=== PATIENT | female | born 1965 | race Caucasian/White ===

== ENCOUNTER 2018-12-20 09:48 | Day surgery (SDC) | payer OTHER ==
[2018-12-19 10:53] VITALS: BMI 21.4
[~2018-12-20 09:48] MED LIST: HYDROmorphone 0.5 MG/0.5 ML SYRINGE IVP PRN; LACTATED RINGERS 1,000 ML IV ONE; LACTATED RINGERS 1,000 ML IV SCH; LIDOCAINE 1% 20 ML VIAL (10MG/ML) FOR IV START INTRADERMA PRN; LIDOCAINE VISCOUS 2% 15 ML CUP MUCOUS MEM ONE; ONDANSETRON 4 MG/2 ML VIAL IVP ONE
[2018-12-20 10:41] VITALS: TEMP 97
[2018-12-20] MEDS ORDERED: LIDOCAINE 1% INJ 10MG/ML (20 ML MDV) ONE (11:17)
[2018-12-20] MEDS ORDERED: PROPOFOL 10 MG/ML 20 ML VIAL IV ONE (11:17)
[2018-12-20] MEDS ORDERED: MIDAZOLAM 2 MG/2 ML VIAL ONE (11:17)
[2018-12-20] MEDS ORDERED: LIDOCAINE 2% INJ 20 MG/ML INTRATRACH ONE (11:35)
[2018-12-20 12:18] VITALS: BP 121/77; PULSE 82; RESP 18
--- NOTE | 2018-12-20 19:59 | P.PCN ---
Date of Procedure: 12/20/18 Preoperative Diagnosis: Right paratracheal mass Postoperative Diagnosis: Right paratracheal mass Procedure(s) Performed: Bronchoscopy, transbronchial needle aspirate of right paratracheal mass Anesthesia: MAC Surgeon: Genie Coleman Rotoformer Backtender #1: Kaley Cabrera Estimated Blood Loss (ml): 0 Pathology: other Condition: stable Disposition: same day Operative Findings: This procedure was done in the operating room. Consent was obtained before the procedure. The indications the potential complication was extended to the patient at length. A consent was signed and witnessed by the assisting nurse The patient was asked to sized by [employer]. After achieving adequate sedation, the flexible bronchoscope was inserted to the left nostril. The scope was passed down the throat end of the lungs. Examination of the nasal passages were essentially within normal. The bronchoscope was moved to the pharynx and the larynx and vocal cord structures were within normal limits with normal motility and function. A total of 2 mL of 1% lidocaine was applied to the vocal cords and following that the bronchoscope was advanced with Doppler trachea. Examination tracheal bronchial tree was done. Trachea, back and mainstem bronchi, right upper lobe bronchus, right middle lobe bronchus, right lower lobe bronchus, left upper lobe bronchus and left lower lobe bronchus and the various segments and subsegments were patent and within normal limits. At this point, using a 19-gauge cytology and 21-gauge histology, transbronchial needle aspirate of the right paratracheal lymph node was done. Several passes were taken and the adequacy of the samples were inspected by pathology the bedside. The biopsy was lesion on. No endobronchial bleeding was encountered. Bronchoscope was removed and the procedure was terminated and the patient was transferred to recovery in stable condition.
== END 2018-12-20 13:09 | disposition home or self-care (01) ==
LOC: ORWHC2ENDO 09:48
PROVIDERS: ATTEND Internal Medicine Critical Care Medicine
DX: C96.9 Malignant neoplasm of lymphoid, hematopoietic and related tissue, unspecified (principal); J44.9 Chronic obstructive pulmonary disease, unspecified; K21.0 Gastro-esophageal reflux disease with esophagitis; R10.9 Unspecified abdominal pain; G89.29 Other chronic pain; R63.4 Abnormal weight loss; Z68.21 Body mass index [BMI] 21.0-21.9, adult; F17.200 Nicotine dependence, unspecified, uncomplicated; Z79.890 Hormone replacement therapy; Z79.899 Other long term (current) drug therapy; Z88.2 Allergy status to sulfonamides
CPT/HCPCS: 88305; 88173; 88342; 88341; 31629; J2001 ×2; J2250; J2405; J2704

== ENCOUNTER 2018-12-29 11:36 | Emergency (ER) | payer OTHER ==
[2018-12-29] MEDS ORDERED: SODIUM CHLORIDE 0.9% 2,000 ML IV ONE (11:56)
--- NOTE | 2018-12-29 11:59 | ED ---
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 Patient was over seeing the oncologist today and they noted her blood pressure to be very low. Patient states over the last week she has been getting more and more lightheaded. Patient has had no syncopal episodes. Patient denies any chest pain palpitations difficulty breathing or shortness of breath. Patient does complain of anterior chest wall pain and states it's been there since September but is slowly getting worse. Patient states she has no abdominal pain but when I press her epigastric area she is tender. Patient denies any recent fever or chills. Patient denies any nausea vomiting diarrhea. Patient denies any dysuria hematuria urinary frequency. - Related Data Home Medications Medication Instructions Recorded Confirmed Levothyroxine Sodium [Synthroid] 112 mcg PO QAM 12/19/18 12/29/18 Dicyclomine [Bentyl] 20 mg PO QID 12/29/18 12/29/18 Nicotine 21Mg/24Hr Patch [Habitrol 1 patch TRANSDERM DAILY 12/29/18 12/29/18 21Mg/24Hr Patch] Omeprazole 40 mg PO DAILY 12/29/18 12/29/18 Previous Rx's Medication Instructions Recorded Nitrofurantoin Monohyd/M-Cryst 100 mg PO Q12HR #14 cap 12/29/18 [Macrobid] Allergies Allergy/AdvReac Type Severity Reaction Status Date / Time Sulfa (Sulfonamide Allergy Rash/Hives Verified 12/29/18 11:49 Antibiotics) Review of Systems ROS Statement: Those systems with pertinent positive or pertinent negative responses have been documented in the HPI. ROS Other: All systems not noted in ROS Statement are negative. Past Medical History Past Medical History: Cancer, GERD/Reflux, Thyroid Disorder Additional Past Medical History / Comment(s): enlarged lymphnode chest,having abdominal pain. Small cell. Lung CA History of Any Multi-Drug Resistant Organisms: None Reported Past Surgical History: Orthopedic Surgery Additional Past Surgical History / Comment(s): ORIF alva ankle, lt knee procedure Past Anesthesia/Blood Transfusion Reactions: No Reported Reaction Additional Past Anesthesia/Blood Transfusion Reaction / Comment(s): no hx blood transfusion Past Psychological History: No Psychological Hx Reported Smoking Status: Current every day smoker Past Alcohol Use History: None Reported Past Drug Use History: None Reported - Past Family History Mother Family Medical History: Cancer Additional Family Medical History / Comment(s): breast General Exam - General Exam Comments Initial Comments: GENERAL: Patient is well-developed and well-nourished. Patient is nontoxic and well- hydrated and is in mild distress. ENT: Neck is soft and supple. No significant lymphadenopathy is noted. Oropharynx is clear. Moist mucous membranes. Neck has full range of motion without eliciting any pain. EYES: The sclera were anicteric and conjunctiva were pink and moist. Extraocular movements were intact and pupils were equal round and reactive to light. Eyelids were unremarkable. PULMONARY: Unlabored respirations. Good breath sounds bilaterally. No audible rales rhonchi or wheezing was noted. CARDIOVASCULAR: Patient is tachycardic at about 120 beats a minute ABDOMEN: Patient has slight epigastric abdominal tenderness as well as left upper quadrant tenderness. No palpable organomegaly was noted. There is no palpable pulsatile mass. SKIN: Skin is clear with no lesions or rashes and otherwise unremarkable. NEUROLOGIC: Patient is alert and oriented x3. Cranial nerves II through XII are grossly intact. Motor and sensory are also intact. Normal speech, volume and content. Symmetrical smile. MUSCULOSKELETAL: Normal extremities with adequate strength and full range of motion. LYMPHATICS: No significant lymphadenopathy is noted PSYCHIATRIC: Normal psychiatric evaluation. Normal interpersonal interactions appears functionally intact in deals appropriately with others. No signs of depression. No signs of anxiety. Limitations: no limitations Course Vital Signs 12/29/18 12/29/18 11:39 11:56 Temperature 96.3 F L Pulse Rate 124 H 87 Respiratory 22 18 Rate Blood Pressure 79/37 124/92 O2 Sat by Pulse 99 97 Oximetry Medical Decision Making - Medical Decision Making EKG shows sinus rhythm with occasional PVC at 84 bpm AK interval is on a 62 QRS of 102 QT interval 46 QTC is 479. Patient's EKG shows no ST segment elevation or depression or T wave abnormalities are noted. Patient received Rocephin emergency department. Patient received 2 L of normal saline and her blood pressure came back up to normal. Patient was no longer lightheaded or dizzy. Patient does have an elevated lipase and she is aware of that and she will follow-up with a primary medical care doctor. - Lab Data Result diagrams: 12/29/18 12:00 12/29/18 12:00 Lab Results 12/29/18 12/29/18 12/29/18 Range/Units 12:00 12:00 12:55 WBC 10.2 (3.8-10.6) k/uL RBC 4.73 (3.80-5.40) m/uL Hgb 14.7 (11.4-16.0) gm/dL Hct 44.1 (34.0-46.0) % MCV 93.1 (80.0-100.0) fL MCH 31.1 (25.0-35.0) pg MCHC 33.5 (31.0-37.0) g/dL RDW 13.5 (11.5-15.5) % Plt Count 346 (150-450) k/uL Neutrophils % 69 % Lymphocytes % 22 % Monocytes % 6 % Eosinophils % 1 % Basophils % 0 % Neutrophils # 7.0 (1.3-7.7) k/uL Lymphocytes # 2.2 (1.0-4.8) k/uL Monocytes # 0.6 (0-1.0) k/uL Eosinophils # 0.1 (0-0.7) k/uL Basophils # 0.0 (0-0.2) k/uL Sodium 133 L (137-145) mmol/L Potassium 4.1 (3.5-5.1) mmol/L Chloride 98 (98-107) mmol/L Carbon Dioxide 23 (22-30) mmol/L Anion Gap 12 mmol/L BUN 12 (7-17) mg/dL Creatinine 0.78 (0.52-1.04) mg/dL Est GFR (CKD-EPI)AfAm >90 (>60 ml/min/1.73 sqM) Est GFR (CKD-EPI)NonAf 86 (>60 ml/min/1.73 sqM) Glucose 114 H (74-99) mg/dL Calcium 9.6 (8.4-10.2) mg/dL Magnesium 2.1 (1.6-2.3) mg/dL Total Bilirubin 0.6 (0.2-1.3) mg/dL AST 18 (14-36) U/L ALT 51 (9-52) U/L Alkaline Phosphatase 51 (38-126) U/L Total Protein 6.8 (6.3-8.2) g/dL Albumin 3.8 (3.5-5.0) g/dL Amylase 88 (30-110) U/L Lipase 488 H (23-300) U/L Urine Color Light Yellow Urine Appearance Clear (Clear) Urine pH 6.0 (5.0-8.0) Ur Specific [place] 1.004 (1.001-1.035) Urine Protein Negative (Negative) Urine Glucose (UA) Negative (Negative) Urine Ketones Negative (Negative) Urine Blood Negative (Negative) Urine Nitrite Positive H (Negative) Urine Bilirubin Negative (Negative) Urine Urobilinogen <2.0 (<2.0) mg/dL Ur Leukocyte Esterase Moderate H (Negative) Urine WBC 16 H (0-5) /hpf Ur Squamous Epith Cells 4 (0-4) /hpf Urine Bacteria Occasional H (None) /hpf Disposition Clinical Impression: Dehydration, Urinary tract infection, Hypotension, Elevated lipase Disposition: HOME SELF-CARE Condition: Good Instructions (If sedation given, give patient instructions): Urinary Tract Infection in Women (ED) Prescriptions: Nitrofurantoin Monohyd/M-Cryst [Macrobid] 100 mg PO Q12HR #14 cap Is patient prescribed a controlled substance at d/c from ED?: No Referrals: Selvin Jaeger MD [Primary Care Provider] - 1-2 days Time of Disposition: 13:40
[2018-12-29 12:25] LABS: Basophils % (A) 0 %; Eosinophils # (A) 0.1 k/uL (0-0.7); Eosinophils % (A) 1 %; HCT 44.1 % (34.0-46.0); HGB 14.7 gm/dL (11.4-16.0); Lymphocytes # (A) 2.2 k/uL (1.0-4.8); Lymphocytes % (A) 22 %; MCH 31.1 pg (25.0-35.0); MCHC 33.5 g/dL (31.0-37.0); MCV 93.1 fL (80.0-100.0); Mean Platelet Volume 6.5; Monocytes # (A) 0.6 k/uL (0-1.0); Monocytes % (A) 6 %; Neutrophils % (A) 69 %; Platelet Count 346 k/uL (150-450); RBC 4.73 m/uL (3.80-5.40); RDW 13.5 % (11.5-15.5); WBC 10.2 k/uL (3.8-10.6)
[2018-12-29 12:28] LABS: ALT 51 U/L (9-52); AST 18 U/L (14-36); Albumin 3.8 g/dL (3.5-5.0); Alkaline Phosphatase 51 U/L (38-126); Amylase 88 U/L (30-110); Anion Gap 12 mmol/L; Blood Urea Nitrogen 12 mg/dL (7-17); Calcium 9.6 mg/dL (8.4-10.2); Carbon Dioxide 23 mmol/L (22-30); Chloride 98 mmol/L (98-107); Glucose 114 mg/dL (74-99); Lipase 488 U/L (23-300); Magnesium 2.1 mg/dL (1.6-2.3); Potassium 4.1 mmol/L (3.5-5.1); Sodium 133 mmol/L (137-145); Total Bilirubin 0.6 mg/dL (0.2-1.3); Total Protein 6.8 g/dL (6.3-8.2)
[2018-12-29 13:32] LABS: Appearance,Urine Clear (Clear); Bacteria,Urine Occasional /hpf; Bilirubin,Urine Negative (Negative); Blood,Urine Negative (Negative); Color,Urine Light Yellow; Glucose,Urine (UA) Negative (Negative); Ketones,Urine Negative (Negative); Leukocyte Esterase,Urine Moderate (Negative); Nitrite,Urine Positive (Negative); Protein,Urine Negative (Negative); Specific Gravity,Urine 1.004 (1.001-1.035); Squamous Epithelial Cell,Urine 4 /hpf (0-4); Urobilinogen,Urine <2.0 mg/dL (<2.0); WBC,Urine 16 /hpf (0-5)
[2018-12-29 13:52] VITALS: BP 103/59; PULSE 86; RESP 16; TEMP 98.6
[2018-12-29] MEDS ORDERED: cefTRIAXone 1,000 MG VIAL (IM USE) IM ONE (14:00)
== END 2018-12-29 14:06 | disposition home or self-care (01) ==
LOC: EC 11:36
DX: E86.0 Dehydration (principal); N39.0 Urinary tract infection, site not specified; I95.9 Hypotension, unspecified; R74.8 Abnormal levels of other serum enzymes; I49.3 Ventricular premature depolarization; K21.9 Gastro-esophageal reflux disease without esophagitis; E07.9 Disorder of thyroid, unspecified; F17.200 Nicotine dependence, unspecified, uncomplicated; Z79.890 Hormone replacement therapy; Z79.899 Other long term (current) drug therapy; Z88.2 Allergy status to sulfonamides; Z85.118 Personal history of other malignant neoplasm of bronchus and lung
CPT/HCPCS: 36415; 93005; 80053; 82150; 83690; 83735; 85025; 81001; 87086; 87077; 87186; 99284; 96360; 96372; J0696

== ENCOUNTER → 2018-12-29 | Outpatient (CLI) | payer OTHER ==
--- NOTE | 2018-12-29 15:04 | MR ---
EXAMINATION TYPE: MR brain wo/w con DATE OF EXAM: 12/29/2018 COMPARISON: No comparisons available at this location. HISTORY: Lung cancer, headaches CONTRAST: Performed utilizing 6 mL intravenous Gadavist gadolinium contrast. TECHNIQUE: Multiplanar, multiecho imaging on a 3.0 Cherie magnet is performed through the brain. Stud y is performed within 24 hours of arrival to the hospital. The craniovertebral junction is normal. The pituitary is normal. Diffusion-weighted imaging is performed. No abnormal hyperintensity is present to suggest an acute i ntracranial infarct or acute ischemic change. There are scattered deep white matter changes present bilaterally. Findings are nonspecific but could be related to microvascular ischemic change. No corresponding diffusion weighted image hyperintensit y is evident. No abnormal enhancement is evident. Metastatic lesions are less likely within the diffe rential. No abnormal enhancement is evident within the brain. Calvarium appears intact. Ventricles and sulci are slightly prominent for the patient age. Mucosal thickenings within the sphenoid and ethmoid air cells. Mastoid air cells are clear. Maxillary sinuses appear clear. IMPRESSIONS: 1. 1. No suspicious changes to suggest metastatic disease. 2. There are multiple bilateral hyperintensities in the subcortical and deep white matter. The findin gs are nonspecific but could be related to microvascular ischemic change. Lack of enhancement and no significant edema and negative diffusion suggested metastatic lesions to be less likely. Vasculitis a nd Lyme disease could be considered.
== END ==
LOC: RADMRIMAIN 14:13
PROVIDERS: ATTEND Internal Medicine Hematology & Oncology
DX: R90.89 Other abnormal findings on diagnostic imaging of central nervous system (principal); C34.90 Malignant neoplasm of unspecified part of unspecified bronchus or lung
CPT/HCPCS: 70553; A9585

== ENCOUNTER → 2018-12-30 | Outpatient (CLI) | payer OTHER ==
--- NOTE | 2019-01-01 15:28 | PE ---
EXAMINATION TYPE: PET CT fusion skull to thigh DATE OF EXAM: 12/30/2018 COMPARISON: None Prior PET/CT: None HISTORY: Lung cancer right lung TECHNIQUE: Following the intravenous administration of 12.6-7 mCi of F-18 FDG, whole body images are performed from the skull base to the midthigh. Images are reviewed on the computer in the coronal, axial, and sagittal planes. Reconstructed rotating images are created on independent workstation and reviewed on the computer. A localization and attenuation correction CT is performed in conjunction with the PET scan. DLP: 179.36 mGycm SCAN: Initial Blood glucose: 98 mg/dL Average Mediastinum SUV: 1.65 Average Liver SUV: 1.89 FINDINGS: NECK: No abnormal uptake THORAX: There is marked increased radiotracer accumulation within the right paratracheal mass. This h as an SUV value of 6.1 compatible with neoplasm. There is marked increased uptake within the right hilar lymph node. This has an SUV value 5.45, gregg tible with neoplasm. Additional abnormal mediastinal uptake is not identified. No suspicious uptake is identified within t he lung ivy. ABDOMEN: No abnormal uptake. There is normal radiotracer through the bilateral kidneys and excretory system. PELVIS: No abnormal uptake OSSEOUS STRUCTURES: No abnormal uptake LOCALIZATION CT: Ascending thoracic aorta at the level the main pulmonary artery is 3.3 cm patent lis n pulmonary artery the bifurcation is 2.1 cm. Some coronary artery calcifications present. COMPARISON: Subsequent CTA for pulmonary embolism was obtained 01/01/2019. Mediastinal and hilar hector s correspond to the abnormalities on the PET/CT. IMPRESSION: 1. Mediastinal mass compatible with neoplasm. Primary and metastatic disease could be considered. 2. Abnormal uptake within the right hilar lymph node compatible with neoplastic disease.
== END ==
LOC: RADPETMAIN 12:12
PROVIDERS: ATTEND Internal Medicine
DX: J98.59 Other diseases of mediastinum, not elsewhere classified (principal); R93.89 Abnormal findings on diagnostic imaging of other specified body structures; R91.1 Solitary pulmonary nodule
CPT/HCPCS: 78815; A9552

== ENCOUNTER 2019-01-01 11:37 | Emergency (ER) | payer OTHER ==
[2019-01-01] MEDS ORDERED: SODIUM CHLORIDE 0.9% 1,000 ML IV ONE (12:09)
--- NOTE | 2019-01-01 12:13 | ED ---
General Adult HPI - General Chief complaint: Abdominal Pain Stated complaint: LOW BP,Ca PATIENT Time Seen by Provider: 01/01/19 11:50 Source: patient, RN notes reviewed Mode of arrival: wheelchair Limitations: no limitations - History of Present Illness Initial comments: This is a 53-year-old female presents emergency department with past medical history of recently diagnosed small cell lung cancer. Patient presents to the emergency department complaining of feeling lightheaded since last evening and she went to her physician's office today and they noted that her blood pressure was low. Patient states the same thing happened Tuesday and she was seen in the emergency department that time was hydrated with some normal saline and blood pressure came back nicely and she was sent home and felt fine since Tuesday night. Patient denies any pain patient denies headache patient denies numbness weakness. Patient denies near syncopal episode. Patient denies any chest pain palpitations difficulty breathing shortness of breath. Patient states she has some at the gastric and left upper quadrant abdominal pain which is been ongoing for quite a while but no one seems to be able to figure out what his uvula she has had CAT scans in the past. Patient denies any vomiting or diarrhea. Patient denies any recent fever chills or cough. Patient denies any swelling to her legs. - Related Data Home Medications Medication Instructions Recorded Confirmed Levothyroxine Sodium [Synthroid] 112 mcg PO QAM 12/19/18 01/01/19 Dicyclomine [Bentyl] 20 mg PO QID 12/29/18 01/01/19 Omeprazole 40 mg PO DAILY 12/29/18 01/01/19 HYDROcodone/APAP 5-325MG [[place] 1 tab PO QID 01/01/19 01/01/19 5-325] Allergies Allergy/AdvReac Type Severity Reaction Status Date / Time Sulfa (Sulfonamide Allergy Rash/Hives Verified 01/01/19 12:20 Antibiotics) Review of Systems ROS Statement: Those systems with pertinent positive or pertinent negative responses have been documented in the HPI. ROS Other: All systems not noted in ROS Statement are negative. Past Medical History Past Medical History: Cancer, GERD/Reflux, Thyroid Disorder Additional Past Medical History / Comment(s): enlarged lymphnode chest,having abdominal pain. Small cell. Lung CA History of Any Multi-Drug Resistant Organisms: None Reported Past Surgical History: Orthopedic Surgery Additional Past Surgical History / Comment(s): ORIF alva ankle, lt knee procedure Past Anesthesia/Blood Transfusion Reactions: No Reported Reaction Additional Past Anesthesia/Blood Transfusion Reaction / Comment(s): no hx blood transfusion Past Psychological History: No Psychological Hx Reported Smoking Status: Current every day smoker Past Alcohol Use History: None Reported Past Drug Use History: None Reported - Past Family History Mother Family Medical History: Cancer Additional Family Medical History / Comment(s): breast General Exam - General Exam Comments Initial Comments: GENERAL: Patient is well-developed and well-nourished. Patient is nontoxic and well- hydrated and is in no acute distress. ENT: Neck is soft and supple. No significant lymphadenopathy is noted. Oropharynx is clear. Moist mucous membranes. Neck has full range of motion without eliciting any pain. EYES: The sclera were anicteric and conjunctiva were pink and moist. Extraocular movements were intact and pupils were equal round and reactive to light. Eyelids were unremarkable. PULMONARY: Unlabored respirations. Good breath sounds bilaterally. No audible rales rhonchi or wheezing was noted. CARDIOVASCULAR: There is a regular rate and rhythm without any murmurs gallops or rubs. ABDOMEN: Soft and nontender with normal bowel sounds. No palpable organomegaly was noted. There is no palpable pulsatile mass. SKIN: Skin is clear with no lesions or rashes and otherwise unremarkable. NEUROLOGIC: Patient is alert and oriented x3. Cranial nerves II through XII are grossly intact. Motor and sensory are also intact. Normal speech, volume and content. Symmetrical smile. MUSCULOSKELETAL: Normal extremities with adequate strength and full range of motion. No lower extremity swelling or edema. No calf tenderness. LYMPHATICS: No significant lymphadenopathy is noted PSYCHIATRIC: Normal psychiatric evaluation. Limitations: no limitations Course Vital Signs 01/01/19 01/01/19 01/01/19 11:48 12:10 12:58 Temperature 97.7 F Pulse Rate 85 92 91 Respiratory 18 18 18 Rate Blood Pressure 82/55 86/67 130/90 O2 Sat by Pulse 99 99 Oximetry 01/01/19 01/01/19 14:24 15:39 Temperature Pulse Rate 90 85 Respiratory 18 18 Rate Blood Pressure 129/84 124/81 O2 Sat by Pulse 97 98 Oximetry Medical Decision Making - Medical Decision Making EKG shows a junctional rhythm at 96 bpm QRS is 100 QT interval 36 QTC is 487. This is different than the previous EKG on Tuesday which showed a sinus rhythm. The parents computed tomography scan of the chest showed no pulmonary embolism. It did show a mediastinal mass which was already identified previously I spoke with Dr. Bridgett Urias agreed the patient could go home. I went back into reevaluate the patient patient's monitor showed a normal sinus rhythm at this time. - Lab Data Result diagrams: 01/01/19 12:03 01/01/19 12:03 Lab Results 01/01/19 01/01/19 01/01/19 Range/Units 12: 12: 12: WBC 8.4 (3.8-10.6) k/uL RBC 4.38 (3.80-5.40) m/uL Hgb 14.1 (11.4-16.0) gm/dL Hct 41.4 (34.0-46.0) % MCV 94.5 (80.0-100.0) fL MCH 32.1 (25.0-35.0) pg MCHC 34.0 (31.0-37.0) g/dL RDW 13.6 (11.5-15.5) % Plt Count 317 (150-450) k/uL Neutrophils % 77 % Lymphocytes % 15 % Monocytes % 6 % Eosinophils % 2 % Basophils % 0 % Neutrophils # 6.4 (1.3-7.7) k/uL Lymphocytes # 1.2 (1.0-4.8) k/uL Monocytes # 0.5 (0-1.0) k/uL Eosinophils # 0.1 (0-0.7) k/uL Basophils # 0.0 (0-0.2) k/uL D-Dimer 2.00 H (<0.60) mg/L FEU Sodium 132 L (137-145) mmol/L Potassium 3.6 (3.5-5.1) mmol/L Chloride 97 L (98-107) mmol/L Carbon Dioxide 25 (22-30) mmol/L Anion Gap 10 mmol/L BUN 9 (7-17) mg/dL Creatinine 0.58 (0.52-1.04) mg/dL Est GFR (CKD-EPI)AfAm >90 (>60 ml/min/1.73 sqM) Est GFR (CKD-EPI)NonAf >90 (>60 ml/min/1.73 sqM) Glucose 157 H (74-99) mg/dL Calcium 9.5 (8.4-10.2) mg/dL Total Bilirubin 0.5 (0.2-1.3) mg/dL AST 14 (14-36) U/L ALT 38 (9-52) U/L Alkaline Phosphatase 50 (38-126) U/L Total Creatine Kinase (30-135) U/L CK-MB (CK-2) (0.0-2.4) ng/mL CK-MB (CK-2) Rel Index Troponin I (0.000-0.034) ng/mL Total Protein 6.6 (6.3-8.2) g/dL Albumin 3.7 (3.5-5.0) g/dL Amylase 71 (30-110) U/L Lipase 347 H (23-300) U/L Urine Color Urine Appearance (Clear) Urine pH (5.0-8.0) Ur Specific [place] (1.001-1.035) Urine Protein (Negative) Urine Glucose (UA) (Negative) Urine Ketones (Negative) Urine Blood (Negative) Urine Nitrite (Negative) Urine Bilirubin (Negative) Urine Urobilinogen (<2.0) mg/dL Ur Leukocyte Esterase (Negative) 01/01/19 01/01/19 Range/Units 12:03 13:15 WBC (3.8-10.6) k/uL RBC (3.80-5.40) m/uL Hgb (11.4-16.0) gm/dL Hct (34.0-46.0) % MCV (80.0-100.0) fL MCH (25.0-35.0) pg MCHC (31.0-37.0) g/dL RDW (11.5-15.5) % Plt Count (150-450) k/uL Neutrophils % % Lymphocytes % % Monocytes % % Eosinophils % % Basophils % % Neutrophils # (1.3-7.7) k/uL Lymphocytes # (1.0-4.8) k/uL Monocytes # (0-1.0) k/uL Eosinophils # (0-0.7) k/uL Basophils # (0-0.2) k/uL D-Dimer (<0.60) mg/L FEU Sodium (137-145) mmol/L Potassium (3.5-5.1) mmol/L Chloride (98-107) mmol/L Carbon Dioxide (22-30) mmol/L Anion Gap mmol/L BUN (7-17) mg/dL Creatinine (0.52-1.04) mg/dL Est GFR (CKD-EPI)AfAm (>60 ml/min/1.73 sqM) Est GFR (CKD-EPI)NonAf (>60 ml/min/1.73 sqM) Glucose (74-99) mg/dL Calcium (8.4-10.2) mg/dL Total Bilirubin (0.2-1.3) mg/dL AST (14-36) U/L ALT (9-52) U/L Alkaline Phosphatase (38-126) U/L Total Creatine Kinase 22 L (30-135) U/L CK-MB (CK-2) <0.2 (0.0-2.4) ng/mL CK-MB (CK-2) Rel Index Troponin I <0.012 (0.000-0.034) ng/mL Total Protein (6.3-8.2) g/dL Albumin (3.5-5.0) g/dL Amylase (30-110) U/L Lipase (23-300) U/L Urine Color Light Yellow Urine Appearance Clear (Clear) Urine pH 6.5 (5.0-8.0) Ur Specific [place] 1.000 L (1.001-1.035) Urine Protein Negative (Negative) Urine Glucose (UA) Negative (Negative) Urine Ketones Negative (Negative) Urine Blood Negative (Negative) Urine Nitrite Negative (Negative) Urine Bilirubin Negative (Negative) Urine Urobilinogen <2.0 (<2.0) mg/dL Ur Leukocyte Esterase Negative (Negative) Disposition Clinical Impression: Lightheaded, History of lung cancer, Hypotension Disposition: HOME SELF-CARE Condition: Good Instructions (If sedation given, give patient instructions): Hypotension (ED) Is patient prescribed a controlled substance at d/c from ED?: No Referrals: Selvin Jaeger MD [Primary Care Provider] - 1-2 days Pop Fortune MD [STAFF PHYSICIAN] - 1-2 days Time of Disposition: 16:25
[2019-01-01 12:22] LABS: Basophils % (A) 0 %; Eosinophils # (A) 0.1 k/uL (0-0.7); Eosinophils % (A) 2 %; HCT 41.4 % (34.0-46.0); HGB 14.1 gm/dL (11.4-16.0); Lymphocytes # (A) 1.2 k/uL (1.0-4.8); Lymphocytes % (A) 15 %; MCH 32.1 pg (25.0-35.0); MCV 94.5 fL (80.0-100.0); Mean Platelet Volume 6.2; Monocytes # (A) 0.5 k/uL (0-1.0); Monocytes % (A) 6 %; Neutrophils # (A) 6.4 k/uL (1.3-7.7); Neutrophils % (A) 77 %; Platelet Count 317 k/uL (150-450); RBC 4.38 m/uL (3.80-5.40); RDW 13.6 % (11.5-15.5); WBC 8.4 k/uL (3.8-10.6)
--- NOTE | 2019-01-01 12:29 | XR ---
EXAMINATION TYPE: XR KUB DATE OF EXAM: 01/01/2019 CLINICAL DATA: 53-year-old female with abdominal pain, PH[facility] COMPARISON: PET CT 12/30/2018 FINDINGS: Lung bases are clear. No evidence for free intraperitoneal air. There are scattered small air-fluid levels demonstrated. No dilated bowel loops. No significant stool burden. Mottled stool in the rectum. No suspicious calcifications identified. IMPRESSION: 1. Scattered small air-fluid levels could represent ileus or enteritis. 2.No evidence of bowel obstruction or free intraperitoneal air.
[2019-01-01 12:31] LABS: ALT 38 U/L (9-52); Albumin 3.7 g/dL (3.5-5.0); Alkaline Phosphatase 50 U/L (38-126); Amylase 71 U/L (30-110); Anion Gap 10 mmol/L; Blood Urea Nitrogen 9 mg/dL (7-17); Carbon Dioxide 25 mmol/L (22-30); Chloride 97 mmol/L (98-107); Glucose 157 mg/dL (74-99); Lipase 347 U/L (23-300); Potassium 3.6 mmol/L (3.5-5.1); Sodium 132 mmol/L (137-145); Total Protein 6.6 g/dL (6.3-8.2)
[2019-01-01 12:32] LABS: AST 14 U/L (14-36); Calcium 9.5 mg/dL (8.4-10.2); Total Bilirubin 0.5 mg/dL (0.2-1.3)
[2019-01-01 12:42] LABS: Creatine Kinase 22 U/L (30-135)
[2019-01-01 12:56] LABS: Creatine Kinase MB <0.2 ng/mL (0.0-2.4); Troponin I <0.012 ng/mL (0.000-0.034)
[2019-01-01 13:39] LABS: Appearance,Urine Clear (Clear); Bilirubin,Urine Negative (Negative); Blood,Urine Negative (Negative); Color,Urine Light Yellow; Glucose,Urine (UA) Negative (Negative); Ketones,Urine Negative (Negative); Leukocyte Esterase,Urine Negative (Negative); Nitrite,Urine Negative (Negative); PH, Urine 6.5 (5.0-8.0); Protein,Urine Negative (Negative); Urobilinogen,Urine <2.0 mg/dL (<2.0)
--- NOTE | 2019-01-01 15:14 | CT ---
CT CHEST FOR PULMONARY EMBOLISM. EXAMINATION TYPE: CT chest angio for PE DATE OF EXAM: 01/01/2019 INDICATION: Lower Chest pain with shortness of breath. History of lung cancer CT DLP: 212.8 mGycm, Automated exposure control for dose reduction was used. CONTRAST: Patient injected with 100 mL of Isovue 370. COMPARISON: PET CT 12/30/2018 TECHNIQUE: CT of the chest is performed on a spiral scan at 2 mm thick sections. Study is performed with intravenous contrast timed for evaluation for pulmonary embolism. This will limit additional po rtions of the evaluation. 3-D MIP images reconstructed by the technologist are reviewed on the compu ter in the coronal and sagittal planes. FINDINGS: No persistent filling defects are evident to suggest an acute pulmonary embolism. There is an enlarged right hilar lymph node measuring 1.5 cm. There is a very large lymph node or mas s in the pretracheal space measuring 2.1 x 3.0 x 4.6 cm The ascending aorta diameter at the level of the main pulmonary artery is 3.0 cm. The main pulmonary artery diameter at the bifurcation is 2.2 c m. Emphysematous changes are present. No suspicious infiltrates are evident. Limited CT section through the upper abdomen are unremarkable. IMPRESSIONS: 1. No acute embolism. 2. Mediastinal mass could be a very large lymph node or underlying mediastinal mass. Primary or metas tatic lung cancer within the differential. Findings correspond to the PET/CT of 12/30/2018.
[2019-01-01 16:47] VITALS: BP 119/91; PULSE 76; RESP 16; TEMP 98.7
== END 2019-01-01 17:25 | disposition home or self-care (01) ==
LOC: EC 11:37
DX: I95.9 Hypotension, unspecified (principal); R10.12 Left upper quadrant pain; K21.9 Gastro-esophageal reflux disease without esophagitis; E07.9 Disorder of thyroid, unspecified; F17.200 Nicotine dependence, unspecified, uncomplicated; Z85.118 Personal history of other malignant neoplasm of bronchus and lung; Z79.890 Hormone replacement therapy; Z79.891 Long term (current) use of opiate analgesic; Z79.899 Other long term (current) drug therapy; Z88.2 Allergy status to sulfonamides
CPT/HCPCS: 99285; 96360; 36415; 93005; 85379; 80053; 82150; 82550; 82553; 83690; 84484; 85025; 81003; 74018; 71275; Q9967

== ENCOUNTER → 2019-01-04 | Outpatient (CLI) | payer OTHER ==
--- NOTE | 2019-01-05 13:49 | ECHOF ---
Referral Reason:I95.9 Hypotensive, C34.91 lung ca MEASUREMENTS -------- HEIGHT: 170.2 cm WEIGHT: 60.3 kg BP: RVIDd: 2.0 cm (< 3.3) IVSd: 1.1 cm (0.6 - 1.1) LVIDd: 5.6 cm (3.9 - 5.3) LVPWd: 1.3 cm (0.6 - 1.1) IVSs: 1.6 cm LVIDs: 4.0 cm LVPWs: 1.6 cm LA Diam: 3.4 cm (2.7 - 3.8) Ao Diam: 3.3 cm (2.0 - 3.7) AV Cusp: 1.8 cm (1.5 - 2.6) LA Diam: 3.7 cm (2.7 - 3.8) MV EXCURSION: 25.380 mm (> 18.000) MV EF SLOPE: 110 mm/s (70 - 150) EPSS: 1.2 cm MV E Hebert: 0.37 m/s MV DecT: 323 ms MV A Hebert: 0.80 m/s MV E/A Ratio: 0.47 RAP: 5.00 mmHg RVSP: 28.25 mmHg FINDINGS -------- Resting bradycardia (HR<60bpm). This was a technically good study. Overall left ventricular systolic function is mildly impaired with, an EF between 45 - 50 %. The right ventricle is normal in size. The left atrial size is normal. The aortic valve is trileaflet, and appears structurally normal. No aortic stenosis or regurgitation. The mitral valve leaflets are mildly thickened. Mild mitral annular calcification present. Modera te mitral regurgitation is present. Mild tricuspid regurgitation present. There is no evidence of pulmonary hypertension. The right v entricular systolic pressure, as measured by Doppler, is 28.25mmHg. There is no pulmonic regurgitation present. The aortic root size is normal. There is no pericardial effusion. CONCLUSIONS -------- 1. Overall left ventricular systolic function is mildly impaired with, an EF between 45 - 50 %. 2. The right ventricle is normal in size. 3. The left atrial size is normal. 4. The aortic valve is trileaflet, and appears structurally normal. No aortic stenosis or regurgitati on. 5. The mitral valve leaflets are mildly thickened. 6. Mild mitral annular calcification present. 7. Moderate mitral regurgitation is present. 8. Mild tricuspid regurgitation present. 9. There is no evidence of pulmonary hypertension. 10. The right ventricular systolic pressure, as measured by Doppler, is 28.25mmHg. 11. There is no pulmonic regurgitation present. 12. The aortic root size is normal. 13. There is no pericardial effusion. [employer] II ASSEMBLER: Chante Agee RDCS
== END | disposition home or self-care (01) ==
LOC: RADECHMAIN 12:28
PROVIDERS: ATTEND Internal Medicine Hematology & Oncology
DX: I08.1 Rheumatic disorders of both mitral and tricuspid valves (principal); C34.91 Malignant neoplasm of unspecified part of right bronchus or lung; I95.9 Hypotension, unspecified
CPT/HCPCS: 93306

== ENCOUNTER 2019-01-12 07:58 | Inpatient (IN) | payer OTHER ==
[2019-01-12] MEDS ORDERED: SODIUM CHLORIDE 0.9% 1,000 ML IV STA ×2 (08:04→09:29)
--- NOTE | 2019-01-12 08:32 | ED ---
General Adult HPI - General Chief complaint: Weakness Stated complaint: weak Time Seen by Provider: 01/12/19 08:04 Source: patient, family, RN notes reviewed Limitations: no limitations - History of Present Illness Initial comments: Patient is a pleasant 53-year-old female presenting to the emergency Department with generalized weakness. Symptoms have progressed over several weeks, especially the past couple of days. Patient has had decreased appetite for several months and has lost 40 pounds over the past 4 months. Patient was just diagnosed with small cell lung cancer approximately 2 weeks ago. Patient has seen Dr. Fortune and plans are underway for treatment at this time. Patient is not currently under any treatment. Patient just had her port placed. Patient complains of feeling lightheaded and generally weak. No recent area of weakness. No speech problem is. Family states patient has-been confused at times and is having difficulty understanding what they're saying. Patient also needs assistance at times with walking. - Related Data Home Medications Medication Instructions Recorded Confirmed Levothyroxine Sodium [Synthroid] 112 mcg PO DAILY 12/19/18 01/12/19 Omeprazole 40 mg PO DAILY 12/29/18 01/12/19 HYDROcodone/APAP 5-325MG [[place] 1 tab PO QID PRN 01/01/19 01/12/19 5-325] Lactose-Reduced Food [Ensure Plus] 1 can PO TID 01/12/19 01/12/19 Ondansetron [Zofran] 4 mg PO Q8HR PRN 01/12/19 01/12/19 Allergies Allergy/AdvReac Type Severity Reaction Status Date / Time Sulfa (Sulfonamide Allergy Rash/Hives Verified 01/12/19 09:23 Antibiotics) latex AdvReac Unknown Verified 01/12/19 09:23 Review of Systems ROS Statement: Those systems with pertinent positive or pertinent negative responses have been documented in the HPI. ROS Other: All systems not noted in ROS Statement are negative. Constitutional: Denies: fever Eyes: Denies: eye pain ENT: Denies: ear pain Respiratory: Denies: cough Cardiovascular: Denies: chest pain Endocrine: Denies: fatigue Gastrointestinal: Denies: abdominal pain Genitourinary: Denies: dysuria Musculoskeletal: Denies: back pain Skin: Denies: rash Neurological: Reports: weakness, confusion Past Medical History Past Medical History: Cancer, GERD/Reflux, Thyroid Disorder Additional Past Medical History / Comment(s): enlarged lymphnode chest,having abdominal pain. Small cell. Lung CA History of Any Multi-Drug Resistant Organisms: None Reported Past Surgical History: Orthopedic Surgery Additional Past Surgical History / Comment(s): ORIF alva ankle, lt knee procedure Past Anesthesia/Blood Transfusion Reactions: No Reported Reaction Additional Past Anesthesia/Blood Transfusion Reaction / Comment(s): no hx blood transfusion Past Psychological History: No Psychological Hx Reported Smoking Status: Current every day smoker Past Alcohol Use History: None Reported Past Drug Use History: None Reported - Past Family History Mother Family Medical History: Cancer Additional Family Medical History / Comment(s): breast General Exam Limitations: no limitations General appearance: alert, in no apparent distress Head exam: Present: atraumatic Eye exam: Present: other (Pale conjunctiva) ENT exam: Present: normal oropharynx Neck exam: Present: normal inspection Respiratory exam: Present: normal lung sounds bilaterally Cardiovascular Exam: Present: tachycardia GI/Abdominal exam: Present: soft. Absent: tenderness Extremities exam: Present: normal inspection. Absent: pedal edema, calf tenderness Neurological exam: Present: alert, oriented X3, CN II-XII intact, other ( Patient does have difficulty following commands once or twice and needs to be reminded.). Absent: motor sensory deficit Psychiatric exam: Present: normal affect, normal mood Skin exam: Present: normal color Course Vital Signs 01/12/19 01/12/19 01/12/19 07:59 08:30 09:30 Temperature 97.6 F Pulse Rate 107 H 97 92 Respiratory 22 18 18 Rate Blood Pressure 86/62 91/69 117/79 O2 Sat by Pulse 98 95 99 Oximetry 01/12/19 01/12/19 10:00 10:30 Temperature Pulse Rate 98 82 Respiratory 20 20 Rate Blood Pressure 126/95 106/68 O2 Sat by Pulse 98 100 Oximetry EKG Findings - EKG Comments: EKG Findings:: Sinus rhythm at 77 with received. SD 180. QRS 102. QT 458. QTC 518. Normal axis. Normal QRS. No acute ST change. Medical Decision Making - Medical Decision Making Patient reevaluated and resting comfortably in bed. Patient and family updated on results and plan. Dr. Cisneros has been paged for admission for Dr. Jaeger - Lab Data Result diagrams: 01/12/19 08:48 01/12/19 08:48 Lab Results 01/12/19 01/12/19 01/12/19 Range/Units 08:48 08:48 08:48 WBC 11.7 H (3.8-10.6) k/uL RBC 4.58 (3.80-5.40) m/uL Hgb 14.5 (11.4-16.0) gm/dL Hct 41.7 (34.0-46.0) % MCV 91.0 (80.0-100.0) fL MCH 31.7 (25.0-35.0) pg MCHC 34.8 (31.0-37.0) g/dL RDW 13.7 (11.5-15.5) % Plt Count 346 (150-450) k/uL Neutrophils % 81 % Lymphocytes % 11 % Monocytes % 7 % Eosinophils % 1 % Basophils % 0 % Neutrophils # 9.5 H (1.3-7.7) k/uL Lymphocytes # 1.3 (1.0-4.8) k/uL Monocytes # 0.8 (0-1.0) k/uL Eosinophils # 0.1 (0-0.7) k/uL Basophils # 0.0 (0-0.2) k/uL PT 10.4 (9.0-12.0) sec INR 1.0 (<1.2) APTT 24.9 (22.0-30.0) sec Sodium 115 L* (137-145) mmol/L Potassium 3.3 L (3.5-5.1) mmol/L Chloride 78 L (98-107) mmol/L Carbon Dioxide 25 (22-30) mmol/L Anion Gap 12 mmol/L BUN 9 (7-17) mg/dL Creatinine 0.58 (0.52-1.04) mg/dL Est GFR (CKD-EPI)AfAm >90 (>60 ml/min/1.73 sqM) Est GFR (CKD-EPI)NonAf >90 (>60 ml/min/1.73 sqM) Glucose 93 (74-99) mg/dL Calcium 8.7 (8.4-10.2) mg/dL Total Bilirubin 1.4 H (0.2-1.3) mg/dL AST 14 (14-36) U/L ALT 28 (9-52) U/L Alkaline Phosphatase 39 (38-126) U/L Total Protein 6.0 L (6.3-8.2) g/dL Albumin 3.3 L (3.5-5.0) g/dL Urine Color Urine Appearance (Clear) Urine pH (5.0-8.0) Ur Specific [place] (1.001-1.035) Urine Protein (Negative) Urine Glucose (UA) (Negative) Urine Ketones (Negative) Urine Blood (Negative) Urine Nitrite (Negative) Urine Bilirubin (Negative) Urine Urobilinogen (<2.0) mg/dL Ur Leukocyte Esterase (Negative) Urine RBC (0-5) /hpf Urine WBC (0-5) /hpf Ur Squamous Epith Cells (0-4) /hpf Amorphous Sediment (None) /hpf Urine Bacteria (None) /hpf Urine Mucus (None) /hpf 01/12/19 Range/Units 09:47 WBC (3.8-10.6) k/uL RBC (3.80-5.40) m/uL Hgb (11.4-16.0) gm/dL Hct (34.0-46.0) % MCV (80.0-100.0) fL MCH (25.0-35.0) pg MCHC (31.0-37.0) g/dL RDW (11.5-15.5) % Plt Count (150-450) k/uL Neutrophils % % Lymphocytes % % Monocytes % % Eosinophils % % Basophils % % Neutrophils # (1.3-7.7) k/uL Lymphocytes # (1.0-4.8) k/uL Monocytes # (0-1.0) k/uL Eosinophils # (0-0.7) k/uL Basophils # (0-0.2) k/uL PT (9.0-12.0) sec INR (<1.2) APTT (22.0-30.0) sec Sodium (137-145) mmol/L Potassium (3.5-5.1) mmol/L Chloride (98-107) mmol/L Carbon Dioxide (22-30) mmol/L Anion Gap mmol/L BUN (7-17) mg/dL Creatinine (0.52-1.04) mg/dL Est GFR (CKD-EPI)AfAm (>60 ml/min/1.73 sqM) Est GFR (CKD-EPI)NonAf (>60 ml/min/1.73 sqM) Glucose (74-99) mg/dL Calcium (8.4-10.2) mg/dL Total Bilirubin (0.2-1.3) mg/dL AST (14-36) U/L ALT (9-52) U/L Alkaline Phosphatase (38-126) U/L Total Protein (6.3-8.2) g/dL Albumin (3.5-5.0) g/dL Urine Color Yellow Urine Appearance Cloudy H (Clear) Urine pH 7.5 (5.0-8.0) Ur Specific [place] 1.026 (1.001-1.035) Urine Protein Negative (Negative) Urine Glucose (UA) Negative (Negative) Urine Ketones Negative (Negative) Urine Blood Negative (Negative) Urine Nitrite Negative (Negative) Urine Bilirubin Negative (Negative) Urine Urobilinogen <2.0 (<2.0) mg/dL Ur Leukocyte Esterase Trace H (Negative) Urine RBC 2 (0-5) /hpf Urine WBC 2 (0-5) /hpf Ur Squamous Epith Cells 4 (0-4) /hpf Amorphous Sediment Occasional H (None) /hpf Urine Bacteria Rare H (None) /hpf Urine Mucus Rare H (None) /hpf - Radiology Data Radiology results: report reviewed (Computed tomography scan the brain shows degenerative changes, no acute abnormality or metastatic process) Disposition Clinical Impression: Hyponatremia Disposition: ADMITTED IP TO THIS HOSP Is patient prescribed a controlled substance at d/c from ED?: No Referrals: Selvin Jaeger MD [Primary Care Provider] - 1-2 days Decision Time: 10:34
[2019-01-12 09:03] LABS: Basophils % (A) 0 %; Eosinophils # (A) 0.1 k/uL (0-0.7); Eosinophils % (A) 1 %; HCT 41.7 % (34.0-46.0); HGB 14.5 gm/dL (11.4-16.0); Lymphocytes # (A) 1.3 k/uL (1.0-4.8); Lymphocytes % (A) 11 %; MCH 31.7 pg (25.0-35.0); MCHC 34.8 g/dL (31.0-37.0); Monocytes # (A) 0.8 k/uL (0-1.0); Monocytes % (A) 7 %; Neutrophils # (A) 9.5 k/uL (1.3-7.7); Neutrophils % (A) 81 %; Platelet Count 346 k/uL (150-450); RBC 4.58 m/uL (3.80-5.40); RDW 13.7 % (11.5-15.5); WBC 11.7 k/uL (3.8-10.6)
[2019-01-12 09:14] LABS: Partial Thromboplastin Time 24.9 sec (22.0-30.0); Prothrombin Time 10.4 sec (9.0-12.0)
[2019-01-12 09:15] LABS: ALT 28 U/L (9-52); AST 14 U/L (14-36); Albumin 3.3 g/dL (3.5-5.0); Alkaline Phosphatase 39 U/L (38-126); Anion Gap 12 mmol/L; Blood Urea Nitrogen 9 mg/dL (7-17); Calcium 8.7 mg/dL (8.4-10.2); Carbon Dioxide 25 mmol/L (22-30); Chloride 78 mmol/L (98-107); Glucose 93 mg/dL (74-99); Potassium 3.3 mmol/L (3.5-5.1); Total Bilirubin 1.4 mg/dL (0.2-1.3)
[2019-01-12 09:26] LABS: Sodium 115 mmol/L (137-145)
[2019-01-12] MEDS ORDERED: POTASSIUM CHLORIDE ER 20 MEQ TAB.ER PO STA ×2 (09:29→14:20)
--- NOTE | 2019-01-12 10:03 | CT ---
EXAMINATION TYPE: CT brain wo/w con DATE OF EXAM: 01/12/2019 COMPARISON: None HISTORY: Confusion CT DLP: 2120 mGycm Automated exposure control for dose reduction was used. CONTRAST: CT scan of the head is performed without and with IV Contrast, patient injected with 100 mL of Isovue 300. FINDINGS: Exam limited by motion. No midline shift or mass effect. Minimal mucosal thickening involving the sph enoid sinus. No acute hemorrhage. No enhancing mass or mass effect. IMPRESSION: Degenerative and nonspecific white matter changes most typical remote ischemia. No definite pathologi c enhancement. MRI would be more sensitive to detect early metastases. Follow-up MRI suggested.
[2019-01-12 10:09] LABS: Amorphous Sediment,Urine Occasional /hpf; Appearance,Urine Cloudy (Clear); Bacteria,Urine Rare /hpf; Bilirubin,Urine Negative (Negative); Blood,Urine Negative (Negative); Color,Urine Yellow; Glucose,Urine (UA) Negative (Negative); Ketones,Urine Negative (Negative); Leukocyte Esterase,Urine Trace (Negative); Mucus,Urine Rare /hpf; Nitrite,Urine Negative (Negative); PH, Urine 7.5 (5.0-8.0); Protein,Urine Negative (Negative); RBC,Urine 2 /hpf (0-5); Specific Gravity,Urine 1.026 (1.001-1.035); Squamous Epithelial Cell,Urine 4 /hpf (0-4); Urobilinogen,Urine <2.0 mg/dL (<2.0); WBC,Urine 2 /hpf (0-5)
[2019-01-12] MEDS ORDERED: NALOXONE 0.4 MG/ML 1 ML VIAL IV PRN (10:34)
--- NOTE | 2019-01-12 10:52 | XR ---
EXAMINATION TYPE: XR chest 2V DATE OF EXAM: 01/12/2019 COMPARISON: None INDICATION: Occulta breathing TECHNIQUE: Frontal and lateral views of the chest are obtained. FINDINGS: The heart size is normal. The pulmonary vasculature is normal. The lungs are clear. Port is present on the right with the tip in superior vena cava region. IMPRESSION: 1. No acute pulmonary process.
[2019-01-12] MEDS: SODIUM CHLORIDE 0.9% 1,000 ML IV SCH ×2 (12:05→23:30)
[2019-01-12] MEDS: ACETAMINOPHEN TAB 325 MG TAB PO PRN ×2 (13:30→23:54)
--- NOTE | 2019-01-12 14:23 | P.NPCON ---
History of Present Illness - Reason for Consult hyponatremia - History of Present Illness Reason for consultation: Hyponatremia History of present illness: Patient is a 53-year-old female seen in renal consultation for hyponatremia. Sodium level was 1:15 on admission. Patient was brought to the hospital due to change in her mental status. Patient was recently diagnosed with small cell lung cancer about 2 weeks ago and is scheduled to start chemotherapy on Tuesday. Her oral intake has been quite poor and she is lost nearly 40 pounds over the last few months. She is currently answering the questions appropriately but according to her she her mentation is still not at baseline. She denies drinking excessive amounts of water. She is not on any thiazide diuretics. Hemodynamically she stable. No history of renal disease. GFR is at baseline. No vomiting or diarrhea. Potassium level was 3.5 and she received 20 mEq of supplementation. She also received 1 L of normal saline bolus in the ER and is now maintained on normal saline at 75 mL an hour. Vital signs are stable. General: The patient appeared well nourished and normally developed. HEENT: Head exam is unremarkable. Neck is without jugular venous distension. LUNGS: Lungs are clear to auscultation and percussion. Breath sounds decreased. HEART: Rate and Rhythm are regular. First and second heart sounds normal. No murmurs, rubs or gallops. ABDOMEN: Abdominal exam reveals normal bowel sounds. Non-tender and non- distended. No evidence of peritonitis. EXTREMITITES: No clubbing, cyanosis, or edema. Past Medical History Past Medical History: Cancer, GERD/Reflux, Thyroid Disorder Additional Past Medical History / Comment(s): Recently diagnosed with R side small cell lung cancer-to start treatment with chemo/radiation on 01/15/19, recently found enlarged lymph node in chest, abdominal pain and recent weight loss. History of Any Multi-Drug Resistant Organisms: None Reported Past Surgical History: Orthopedic Surgery Additional Past Surgical History / Comment(s): ORIF alva ankles, lt knee arthroscopy, bronchoscopy with bx, R upper chest port insertion. Past Anesthesia/Blood Transfusion Reactions: No Reported Reaction Additional Past Anesthesia/Blood Transfusion Reaction / Comment(s): no hx blood transfusion Smoking Status: Current every day smoker - Past Family History Mother Family Medical History: Cancer Additional Family Medical History / Comment(s): Mother had breast cancer. She is . Father Family Medical History: No Reported History Additional Family Medical History / Comment(s): Father is healthy and 82 yrs old. Medications and Allergies Home Medications Medication Instructions Recorded Confirmed Type Levothyroxine Sodium [Synthroid] 112 mcg PO DAILY 12/19/18 01/12/19 History Omeprazole 40 mg PO DAILY 12/29/18 01/12/19 History HYDROcodone/APAP 5-325MG [[place] 1 tab PO QID PRN 01/01/19 01/12/19 History 5-325] Lactose-Reduced Food [Ensure Plus] 1 can PO TID 01/12/19 01/12/19 History Ondansetron [Zofran] 4 mg PO Q8HR PRN 01/12/19 01/12/19 History Allergies Allergy/AdvReac Type Severity Reaction Status Date / Time Sulfa (Sulfonamide Allergy Rash/Hives Verified 01/12/19 09:23 Antibiotics) latex AdvReac Unknown Verified 01/12/19 09:23 Physical Exam Vitals: Vital Signs Temp Pulse Pulse Resp BP BP Pulse Ox 01/12/19 12:04 97.9 F 65 18 123/72 96 01/12/19 11:00 97.8 F 70 17 104/77 01/12/19 10:30 82 20 106/68 100 01/12/19 10:00 98 20 126/95 98 01/12/19 09:30 92 18 117/79 99 01/12/19 08:30 97 18 91/69 95 01/12/19 07:59 97.6 F 107 H 22 86/62 98 Intake and Output 01/11/19 01/12/19 01/12/19 22:59 06:59 14:59 Intake Total 150 Balance 150 Intake: Intake, IV Titration 150 Amount Sodium Chloride 0.9% 1, 150 000 ml @ 75 mls/hr IV . [id number] Rx#:[id number] Other: Weight 60.328 kg Results - Lab Results Most recent lab results Calcium 8.7 mg/dL (8.4-10.2) 01/12/19 08:48 01/12/19 08:48 01/12/19 08:48 Assessment and Plan Plan: Assessment: 1. Hyponatremia. Patient appears euvolemic. 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 Sodium level 115 on admission. 2. Recently diagnosed small cell carcinoma of the lung. Scheduled to start chemotherapy on Tuesday. 3. Hypokalemia from poor oral intake. Plan: Maintain normal saline at 75 mL an hour for now. Check sodium level stat now. If no improvement, I will start her on 3% saline. Check urine sodium and osmolality. Replace potassium. Another 20 mEq today. 1200 mL fluid restriction. Encouraged oral intake, particularly protein. Thank you for the consultation. I will continue to follow the patient with you during her hospital stay.
[2019-01-12] MEDS ORDERED: ONDANSETRON 4 MG TAB PO PRN (15:36)
[2019-01-12] MEDS ORDERED: HYDROcodone/APAP 5-325MG 1 EACH TAB PO PRN (15:36)
[2019-01-12] MEDS ORDERED: NON-FORMULARY DRUG (Lactose-Reduced Food [Ensure Plus] 1 CAN) PO SCH (16:00)
[2019-01-12] MEDS: SODIUM CHLORIDE TAB 1 GM TAB PO SCH ×2 (16:26→21:55)
--- NOTE | 2019-01-12 16:50 | HP ---
HISTORY AND PHYSICAL DATE OF ADMISSION: 01/12/2019 DATE OF SERVICE: 01/12/2019 PRESENTING COMPLAINT: Weak and tired. HISTORY OF PRESENTING COMPLAINT: This is a pleasant 53-year-old patient who follows with Dr. Jaeger, her family doctor. Her oncologist is Dr. 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 The patient 2 weeks ago was diagnosed with small-cell lung cancer. Patient is due to start chemotherapy this coming Tuesday. Patient progressively has been losing weight, with decreased appetite, dizzy, lightheaded; in fact, she even took a fall at home. Feels totally a loss of energy. Patient presented to the ER, was found to have a sodium of 115 and a serum osmolality of 230. The patient was admitted. at the bedside. REVIEW OF SYSTEMS: CONSTITUTIONAL: Weight loss, loss of appetite. HEENT: None. RESPIRATORY: Slight wheezing, shortness of breath. CARDIOVASCULAR: None. GASTROINTESTINAL: Heartburn. GENITOURINARY: None. MUSCULOSKELETAL: None. DERMATOLOGICAL: None. HEMATOLOGICAL: None. LYMPHATICS: None. PSYCHIATRY: None. NEUROLOGICAL: Nil focal. PAST MEDICAL HISTORY: 1. GERD. 2. Hypothyroidism. 3. Right-sided small-cell lung cancer, to start chemo and radiation on 01/15/2019. PAST SURGICAL HISTORY: 1. ORIF of bilateral ankles. 2. Left knee arthroscopy. 3. Bronchoscopy. SOCIAL HISTORY: . 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 Smoked about half pack a day for close to 40 years. FAMILY HISTORY: Mother had breast cancer. HOME MEDICATIONS: 1. Zofran 4 mg q.8 p.r.n. 2. Omeprazole 40 mg p.o. daily. 3. Synthroid 112 mcg p.o. daily. 4. Ensure Plus 1 can p.o. t.i.d. 5. [place] 5 one tablet p.o. q.i.d. p.r.n. ALLERGIES: SULFA and LATEX. PHYSICAL EXAMINATION: VITAL SIGNS: Temperature 97.8, pulse 70, respiration 17, blood pressure 104/77, pulse ox 100% on room air. GENERAL APPEARANCE: Thin build. Sitting up. Awake. EYES: Pupils equal. Conjunctivae pale. HEENT: External appearance of nose and ears normal. Oral cavity normal. NECK: JVD not raised. Mass not palpable. RESPIRATORY: Effort normal. LUNGS: Decreased breath sounds. Prolonged expiration. Mild wheezing. CARDIOVASCULAR: First and second sounds normal. No edema. ABDOMEN: Soft, nontender. Liver and spleen not palpable. LYMPHATIC: No lymph node palpable in neck or axillae. PSYCHIATRY: Alert and oriented x3. Mood and affect normal. NEUROLOGICAL: Pupils equal. Cranial nerves grossly intact. Power and sensation grossly intact. INVESTIGATIONS: CT scan of the brain unremarkable. EKG tracing, personally reviewed by me, shows PVC. Chest CTA from January 01 shows mediastinal mass; could be a large lymph node; it states enlarged right hilar lymph node measuring 1.5 cm; there is a very large lymph node or a mass in the pretracheal space measuring 2.1 x 3 x 4.6 cm and emphysematous changes. Two-D echocardiogram shows EF of 45% to 50%, moderate mitral regurgitation. MRI of the brain shows nonspecific findings. White count 11.7, hemoglobin 14.5, sodium 115, potassium 3.3, serum osmolality 230, serum albumin 3.3, urine osmolality 395. ASSESSMENT: 1. Severe hypo-osmolar hyponatremia, possibly syndrome of inappropriate antidiuretic hormone, symptomatic. Patient weak, tired. 2. Right-sided small-cell lung cancer. Patient due to start chemo and radiation treatment this coming Tuesday. 3. Chronic obstructive pulmonary disease in a current smoker. 4. Chronic nicotine dependence. Patient is a cigarette smoker. 5. Gastroesophageal reflux disease. 6. Hypothyroidism. Patient is on a rather big dose for small body frame. Will need to check patient's thyroid status to make sure she is not over-replaced. 7. Mild protein-calorie malnutrition from poor oral intake. Patient's albumin is 3.3. PLAN: Patient is put on fluid restriction of 1500 mL a day. Also will avoid clear liquids. Will start the patient on sodium tablets and normal saline. Nephrology was also consulted and so will be Oncology. Patient also is put on bronchodilators, inhaled steroids. MMODL / IJN: [id number] /
[2019-01-12] MEDS: IPRATROPIUM-ALBUTEROL 3 ML NEB INHALATION SCH ×2 (17:05→19:48)
[2019-01-12] MEDS: BUDESONIDE 1 MG/2 ML NEBU INHALATION SCH (19:47)
--- NOTE | 2019-01-12 23:21 | P.CONS ---
History of Present Illness - Reason for Consult Consult date: 01/12/19 - History of Present Illness The pt is a 53 yr old WF, who presented with SOB and abdominal bloating. CT Scan of CAP revealed R Hilar Lymphadenopathy, was refered to pulmonary and had diagnostic bronchoscopy with Herring needle Bx of R hilar LN on 12/20/18 revealing small cell carcinoma. The patient stated becoming anorexic and loosing 25 Lbs in last 2 months, becoming very weak. She reported progressive dizziness RUE numbness in R upper extremities. Denies fever, chills or night sweats. 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 The pt was referred to Rad Onc and recommended to start [employer] 16 and Carboplatin ( C 1D1 on 01/15/19) The patient had been noted to be complaining of some dizziness in the office. However MRI of the brain did not show evidence of obvious metastatic disease. The patient has had progressive generalized weakness, dizziness, confusion and also suffered a fall. She therefore came into the emergency room and was found to have a sodium of 115. CT of the brain was negative for evidence of bleeding or acute stroke. She was admitted for further management, and consult placed. Labs on 01/01/19 had shown a sodium in the 130 range Review of Systems Constitutional: Reports poor appetite, Reports weakness, Reports weight loss Eyes: denies blurred vision, denies pain Ears: deny: decreased hearing, ear discharge, earache, tinnitus Ears, nose, mouth and throat: Denies headache, Denies sore throat Cardiovascular: Reports dyspnea on exertion Respiratory: Reports cough, Reports dyspnea Gastrointestinal: Reports loss of appetite, Reports nausea Genitourinary: Denies dysuria, Denies hematuria Menstruation: Reports postmenopausal Musculoskeletal: Reports muscle weakness Integumentary: Denies pruritus, Denies rash Neurological: Reports as per HPI, Reports change in mentation, Reports confusion , Reports gait dysfunction, Reports weakness Psychiatric: Reports confusion Endocrine: Reports fatigue, Reports weight change Hematologic/Lymphatic: Reports as per HPI Past Medical History Past Medical History: Cancer, GERD/Reflux, Thyroid Disorder Additional Past Medical History / Comment(s): Recently diagnosed with R side small cell lung cancer-to start treatment with chemo/radiation on 01/15/19, recently found enlarged lymph node in chest, abdominal pain and recent weight loss. History of Any Multi-Drug Resistant Organisms: None Reported Past Surgical History: Orthopedic Surgery Additional Past Surgical History / Comment(s): ORIF alva ankles, lt knee arthroscopy, bronchoscopy with bx, R upper chest port insertion. Past Anesthesia/Blood Transfusion Reactions: No Reported Reaction Additional Past Anesthesia/Blood Transfusion Reaction / Comm: no hx blood transfusion Smoking Status: Current every day smoker - Past Family History Mother Family Medical History: Cancer Additional Family Medical History / Comment(s): Mother had breast cancer. She is . Father Family Medical History: No Reported History Additional Family Medical History / Comment(s): Father is healthy and 82 yrs old. Medications and Allergies Home Medications Medication Instructions Recorded Confirmed Type Levothyroxine Sodium [Synthroid] 112 mcg PO DAILY 12/19/18 01/12/19 History Omeprazole 40 mg PO DAILY 12/29/18 01/12/19 History HYDROcodone/APAP 5-325MG [[place] 1 tab PO QID PRN 01/01/19 01/12/19 History 5-325] Lactose-Reduced Food [Ensure Plus] 1 can PO TID 01/12/19 01/12/19 History Ondansetron [Zofran] 4 mg PO Q8HR PRN 01/12/19 01/12/19 History Allergies Allergy/AdvReac Type Severity Reaction Status Date / Time Sulfa (Sulfonamide Allergy Rash/Hives Verified 01/12/19 09:23 Antibiotics) latex AdvReac Unknown Verified 01/12/19 09:23 Physical Exam Vitals: Vital Signs Temp Pulse Pulse Resp BP BP Pulse Ox 01/12/19 12:04 97.9 F 65 18 123/72 96 01/12/19 11:00 97.8 F 70 17 104/77 01/12/19 10:30 82 20 106/68 100 01/12/19 10:00 98 20 126/95 98 01/12/19 09:30 92 18 117/79 99 01/12/19 08:30 97 18 91/69 95 01/12/19 07:59 97.6 F 107 H 22 86/62 98 Intake and Output 01/12/19 01/12/19 01/12/19 06:59 14:59 22:59 Intake Total 150 Balance 150 Intake: Intake, IV Titration 150 Amount Sodium Chloride 0.9% 1, 150 000 ml @ 75 mls/hr IV . [id number] [facility] Rx#:[id number] Other: Weight 60.328 kg - Constitutional General appearance: no acute distress - EENT Eyes: EOMI, PERRLA ENT: hearing grossly normal, normal oropharynx - Neck Neck: no lymphadenopathy Thyroid: bilateral: normal size - Respiratory Respiratory: bilateral: CTA - Cardiovascular Rhythm: regular Heart sounds: normal: S1, S2 - Gastrointestinal General gastrointestinal: normal bowel sounds, soft - Integumentary Integumentary: normal - Neurologic Neurologic: CNII-XII intact - Musculoskeletal Musculoskeletal: generalized weakness, strength equal bilaterally - Psychiatric This come out appropriately. Alert. However oriented 2. Confusion can be more marked intermittently Results CBC & Chem 7: 01/12/19 08:48 01/12/19 20:08 Labs: Abnormal Lab Results - Last 24 Hours (Table) 01/12/19 01/12/19 01/12/19 Range/Units 08:48 08:48 08:48 WBC 11.7 H (3.8-10.6) k/uL Neutrophils # 9.5 H (1.3-7.7) k/uL Sodium 115 L* (137-145) mmol/L Potassium 3.3 L (3.5-5.1) mmol/L Chloride 78 L (98-107) mmol/L Osmolality 230 L* (280-301) mosm/kg Total Bilirubin 1.4 H (0.2-1.3) mg/dL Total Protein 6.0 L (6.3-8.2) g/dL Albumin 3.3 L (3.5-5.0) g/dL Urine Appearance (Clear) Ur Leukocyte Esterase (Negative) Amorphous Sediment (None) /hpf Urine Bacteria (None) /hpf Urine Mucus (None) /hpf 01/12/19 01/12/19 Range/Units 09:47 14:15 WBC (3.8-10.6) k/uL Neutrophils # (1.3-7.7) k/uL Sodium 117 L* (137-145) mmol/L Potassium (3.5-5.1) mmol/L Chloride (98-107) mmol/L Osmolality (280-301) mosm/kg Total Bilirubin (0.2-1.3) mg/dL Total Protein (6.3-8.2) g/dL Albumin (3.5-5.0) g/dL Urine Appearance Cloudy H (Clear) Ur Leukocyte Esterase Trace H (Negative) Amorphous Sediment Occasional H (None) /hpf Urine Bacteria Rare H (None) /hpf Urine Mucus Rare H (None) /hpf Chest x-ray: report reviewed CT Scan - head: report reviewed MRI - head: report reviewed Assessment and Plan (1) Hyponatremia Narrative/Plan: The pt has severe hyponatremia, 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 She has been seen by Nephrology, and is on NS currently, with plan for 3% saline if her Na+ does not improve. This is likely the cause of her symptomatology. He Na+ has fallen drastically within 10 days. Follow with ongoing treatment per nephrology Start Demeclocycline Current Visit: Yes Status: Acute Code(s): E87.1 - HYPO-OSMOLALITY AND HYPONATREMIA SNOMED Code(s): 45983060 (2) Mental status alteration Narrative/Plan: This has occurred along with generalized weakness, dizziness, and falls. This is most likely due to hyponatremia, with recent contrast MRI of the brain being negative for mets. The pt is improved with NS, though not to her baseline. If this persists despite correction of Na+ , the repeat MRI, as well as CSF sampling will be considered Current Visit: Yes Status: Acute Code(s): R41.82 - ALTERED MENTAL STATUS, UNSPECIFIED SNOMED Code(s): 331796963 (3) Small cell lung cancer Narrative/Plan: So far, the pt appears to have limited stage disease. Thus the plan is for her to start chemotherapy, and add concurrent RT. She was referred to Rad Onc , but could not remember if she has seen them yet. This will be followed up. Start chemo once acute situation is sufficiently resolved. Treatment of her malignancy has the potential to improve her SIADH, assuming she responds Current Visit: Yes Status: Acute Code(s): C34.90 - MALIGNANT NEOPLASM OF UNSP PART OF UNSP BRONCHUS OR LUNG SNOMED Code(s): 583000823
[2019-01-13] MEDS: LORazepam 2 MG/ML INJ IV PRN (02:02)
[2019-01-13] MEDS: NICOTINE 21MG/24HR PATCH TRANSDERM SCH ×2 (02:05→08:03)
[2019-01-13] MEDS ORDERED: HALOPERIDOL 5 MG TAB PO STA (05:45)
[2019-01-13 07:52] LABS: Anion Gap 11 mmol/L; Blood Urea Nitrogen 5 mg/dL (7-17); Calcium 9.1 mg/dL (8.4-10.2); Carbon Dioxide 24 mmol/L (22-30); Chloride 87 mmol/L (98-107); Glucose 80 mg/dL (74-99); Potassium 3.8 mmol/L (3.5-5.1); Sodium 122 mmol/L (137-145)
[2019-01-13] MEDS: SODIUM CHLORIDE TAB 1 GM TAB PO SCH ×4 (08:03→21:47)
[2019-01-13] MEDS: BUDESONIDE 1 MG/2 ML NEBU INHALATION SCH ×2 (08:44→18:44)
[2019-01-13] MEDS: IPRATROPIUM-ALBUTEROL 3 ML NEB INHALATION SCH ×4 (08:44→18:45)
[2019-01-13 11:16] VITALS: BMI 21.4
--- NOTE | 2019-01-13 13:48 | P.PN ---
Subjective Progress Note Date: 01/13/19 Seen and examined for the follow-up of hyponatremia. Recently diagnosed with small cell cancer of the lung and started on chemotherapy. Was complaining of dizziness lightheadedness in the office and sodium was 115 on admission. Improved to 122 to this morning. Still feels dizzy lightheaded but no nausea vomiting or diarrhea. Objective - Vital Signs Vital signs: Vital Signs Temp 97.9 F 01/13/19 05:00 Pulse 79 01/13/19 05:00 Resp 17 01/13/19 05:00 BP 138/93 01/13/19 05:00 Pulse Ox 97 01/13/19 05:00 Intake & Output 01/12/19 01/13/19 01/13/19 18:59 06:59 18:59 Intake Total 385 1360 1170 Balance 385 1360 1170 Weight 60.328 kg 60.328 kg Intake: Intake, IV Titration 150 900 600 Amount Sodium Chloride 0.9% 1, 150 900 600 000 ml @ 75 mls/hr IV . [id number] [facility] Rx#:[id number] Oral 235 460 570 Other: Voiding Method Toilet Toilet # Voids 1 5 1 - Exam No acute distress S1-S2 heard Lungs clear No edema - Labs CBC & Chem 7: 01/12/19 08:48 01/13/19 07:04 Labs: Abnormal Lab Results - Last 24 Hours (Table) 01/12/19 01/12/19 01/13/19 Range/Units 14:15 20:08 07:04 Sodium 117 L* 117 L* 122 L (137-145) mmol/L Chloride 87 L (98-107) mmol/L BUN 5 L (7-17) mg/dL Creatinine 0.46 L (0.52-1.04) mg/dL Assessment and Plan Assessment: #1 hypotonic hyponatremia. Possibilities include volume depletion, underlying SIADH cannot be totally excluded with history of malignancy. Baseline sodium is 130 #2 small cell cancer of the lung #3 hypokalemia #4 normal renal function Plan: #1 sodium improved to 122, which is appropriate 7 in the last 24 hours. #2 repeat BMP again today. Based on that plan either 100 mL of 3% if sodium continues to remain the same or dropping. His sodium improving continue with normal saline. Goal is 128 by tomorrow morning. #3 currently on salt tablets, monitor. #4 maintain fluid restriction
--- NOTE | 2019-01-13 13:51 | PN ---
PROGRESS NOTE DATE OF DICTATION: 01/13/2019 CHIEF COMPLAINT: Tired. Jordyn was seen today in followup. She feels tired. She has some confusion off and on, but she is answering questions appropriately this morning. No nausea or vomiting. No headaches. No melena, hematochezia or hematuria. CURRENT MEDICATIONS: Reviewed in her electronic medical record. PHYSICAL EXAMINATION: She is alert, oriented. She answers questions appropriately. She does not appear to be in distress. Her vital signs are temperature 97.9, afebrile, pulse 79 and regular, respirations 16, blood pressure 138/95. HEENT: Normocephalic, atraumatic. NECK: Supple. CHEST: Equal expansion bilaterally. LUNGS: Clear to auscultation. HEART: Regular rate and rhythm. ABDOMEN: Soft. No tenderness. Extremities revealed no edema. LABORATORY DATA: Sodium today is 122, potassium 3.8, chloride 87. BUN is 5, creatinine 0.45. WBC 11.6, hemoglobin 14.5, hematocrit 41.7, platelets 347. IMPRESSION: 1. Recent diagnosis of limited stage small-cell lung carcinoma. 2. Hyponatremia. The patient is euvolemic and this likely represents SIADH secondary to small-cell lung carcinoma. Her sodium appears to be slowly improving with current management. RECOMMENDATIONS: 1. Continue current management for hyponatremia per Nephrology Service. 2. Since her SIADH is related to her underlying malignancy, the plan is to start systemic chemotherapy for small-cell lung carcinoma with a combination of carboplatin and etoposide early next week, and subsequently concurrent radiation therapy could be added. The above plan was discussed with the patient and her at bedside. I answered all their questions. Thank you very much. MMODL / IJN: [id number] /
[2019-01-13] MEDS: SODIUM CHLORIDE 0.9% 1,000 ML IV SCH ×2 (15:02→21:49)
[2019-01-13 15:39] LABS: Anion Gap 7 mmol/L; Blood Urea Nitrogen 5 mg/dL (7-17); Calcium 8.3 mg/dL (8.4-10.2); Carbon Dioxide 25 mmol/L (22-30); Chloride 95 mmol/L (98-107); Glucose 87 mg/dL (74-99); Potassium 3.5 mmol/L (3.5-5.1); Sodium 127 mmol/L (137-145)
[2019-01-13 20:40] LABS: ALT 27 U/L (9-52); AST 13 U/L (14-36); Albumin 3.1 g/dL (3.5-5.0); Alkaline Phosphatase 42 U/L (38-126); Blood Urea Nitrogen 7 mg/dL (7-17); Calcium 8.5 mg/dL (8.4-10.2); Carbon Dioxide 22 mmol/L (22-30); Chloride 97 mmol/L (98-107); Glucose 123 mg/dL (74-99); Potassium 3.3 mmol/L (3.5-5.1); Total Bilirubin 0.8 mg/dL (0.2-1.3); Total Protein 5.6 g/dL (6.3-8.2)
[2019-01-13 20:51] LABS: Anion Gap 7 mmol/L; Sodium 126 mmol/L (137-145)
--- NOTE | 2019-01-13 22:15 | PN ---
PROGRESS NOTE DATE OF SERVICE: 01/13/2019 PRESENTING COMPLAINT: Tired. INTERVAL HISTORY: This patient recently diagnosed small-cell lung cancer presented with severe hyponatremia, was rather agitated. Delirious at night. Did finally settled down with Haldol. Currently, tired. Sitter in place. REVIEW OF SYSTEMS: Could not be done as patient is lethargic. CURRENT MEDICATIONS: Reviewed and include: DuoNeb, saline, salt tablets. PHYSICAL EXAMINATION: VITAL SIGNS: Temperature 97.9, pulse 79, respiration 17, blood pressure 130/93, pulse ox 97% on room air. GENERAL APPEARANCE: Lying in bed. Lethargic. EYES: Pupils equal. Conjunctivae pale. NECK: JVD unable to assess. Mass not palpable. RESPIRATORY: Effort increased. LUNGS: Diminished breath sounds. Minimal wheezing. CARDIOVASCULAR: 1st and 2nd sounds normal. No edema. ABDOMEN: Soft, nontender. Liver and spleen not palpable. PSYCHIATRY: Lethargic, sleepy but arousable. INVESTIGATIONS: Sodium 126, potassium 3.3. ASSESSMENT: 1. Severe hypoosmolar hyponatremia, possibly Syndrome of inappropriate antidiuretic hormone. 2. Small-cell lung cancer. The patient is due to start chemo and radiation next week. 3. Chronic obstructive pulmonary disease in a current smoker. 4. Chronic nicotine dependence, patient is a cigarette smoker. 5. Gastroesophageal reflux disease. 6. Mild protein-calorie malnutrition from poor oral intake. 7. Hypothyroidism. 8. Acute delirium, multifactorial last night for which the patient required Haldol. PLAN: Continue current medication and treatment plan. Continue the sitter. Close eyes kept on the patient. Prognosis is guarded. MMODL / IJN: [id number] /
[2019-01-14] MEDS: ACETAMINOPHEN TAB 325 MG TAB PO PRN (00:31)
[2019-01-14 07:01] LABS: ALT 29 U/L (9-52); AST 13 U/L (14-36); Albumin 3.1 g/dL (3.5-5.0); Alkaline Phosphatase 44 U/L (38-126); Anion Gap 6 mmol/L; Blood Urea Nitrogen 4 mg/dL (7-17); Calcium 8.6 mg/dL (8.4-10.2); Carbon Dioxide 27 mmol/L (22-30); Chloride 95 mmol/L (98-107); Glucose 89 mg/dL (74-99); Potassium 3.5 mmol/L (3.5-5.1); Sodium 128 mmol/L (137-145); Total Bilirubin 0.8 mg/dL (0.2-1.3); Total Protein 5.7 g/dL (6.3-8.2)
[2019-01-14] MEDS: NICOTINE 21MG/24HR PATCH TRANSDERM SCH (08:18)
[2019-01-14] MEDS: SODIUM CHLORIDE TAB 1 GM TAB PO SCH ×3 (08:25→20:57)
[2019-01-14] MEDS: BUDESONIDE 1 MG/2 ML NEBU INHALATION SCH ×2 (09:14→19:45)
[2019-01-14] MEDS: IPRATROPIUM-ALBUTEROL 3 ML NEB INHALATION SCH ×4 (09:15→19:45)
--- NOTE | 2019-01-14 14:18 | P.PN ---
Subjective Progress Note Date: 01/14/19 Seen and examined for the follow-up of hyponatremia. Recently diagnosed with small cell cancer of the lung and awaiting chemotherapy. Was complaining of dizziness lightheadedness in the office and sodium was 115 on admission. Improved to 128 to this morning. Still feels dizzy lightheaded but no nausea vomiting or diarrhea. Objective - Vital Signs Vital signs: Vital Signs Temp 97.1 F L 01/14/19 11:34 Pulse 80 01/14/19 11:34 Resp 18 01/14/19 11:34 BP 133/79 01/14/19 11:34 Pulse Ox 98 01/14/19 11:34 Intake & Output 01/13/19 01/14/19 01/14/19 18:59 06:59 18:59 Intake Total 1170 1536 Balance 1170 1536 Weight 60.328 kg Intake: Intake, IV Titration 600 675 Amount Sodium Chloride 0.9% 1, 600 000 ml @ 75 mls/hr IV . [id number] [facility] Rx#:[id number] Sodium Chloride 0.9% 1, 675 000 ml @ 75 mls/hr IV . [id number] [facility] Rx#:[id number] Oral 570 861 Other: Voiding Method Toilet Toilet # Voids 1 3 5 # Bowel Movements 3 - Exam No acute distress S1-S2 heard Lungs clear No edema - Labs CBC & Chem 7: 01/12/19 08:48 01/14/19 06:39 Labs: Abnormal Lab Results - Last 24 Hours (Table) 01/13/19 01/13/19 01/14/19 Range/Units 15:09 20:21 06:39 Sodium 127 L 126 L 128 L (137-145) mmol/L Potassium 3.3 L (3.5-5.1) mmol/L Chloride 95 L 97 L 95 L (98-107) mmol/L BUN 5 L 4 L (7-17) mg/dL Creatinine 0.48 L 0.48 L (0.52-1.04) mg/dL Glucose 123 H (74-99) mg/dL Calcium 8.3 L (8.4-10.2) mg/dL AST 13 L 13 L (14-36) U/L Total Protein 5.6 L 5.7 L (6.3-8.2) g/dL Albumin 3.1 L 3.1 L (3.5-5.0) g/dL Assessment and Plan Assessment: #1 Acute on chronic hypotonic hyponatremia. Acute component secondary to hypovolemia and chronic component secondary to underlying SIADH from lung cancer. Baseline sodium is 130 #2 small cell cancer of the lung #3 hypokalemia #4 normal renal function Plan: #1 sodium improved to 128, which is appropriate 6 in the last 24 hours. #2 continue with IV fluids today, salt tablets. By tomorrow stop IV fluids and add low-dose Lasix for SIADH component. #3 maintain on fluid restriction now and 40 ounces at discharge. #4 plan of care explained to the patient and the at bedside.
[2019-01-14] MEDS: SODIUM CHLORIDE 0.9% 1,000 ML IV SCH ×2 (20:58→23:52)
--- NOTE | 2019-01-14 22:07 | PN ---
PROGRESS NOTE DATE OF SERVICE: January 14, 2019. PRESENTING COMPLAINT: Tired. INTERVAL HISTORY: The patient has a diagnosis of small-cell lung cancer, presents with severe hyponatremia, also acute delirium, which is now resolved. Sitting up, did tolerate some diet. Slight cough. Breathing is stable. at the bedside. REVIEW OF SYSTEMS: Done for constitutional, cardiovascular, GI, pulmonary; relevant findings as above. CURRENT MEDICATIONS: Reviewed that include salt tablets, normal saline 75 mL an hour. PHYSICAL EXAMINATION: VITAL SIGNS: Temperature 97.1, pulse 80, respiratory 18, blood pressure 133/79, pulse ox 98% on room air. GENERAL APPEARANCE: Sitting up, awake. EYES: Pupils equal. Conjunctivae normal. NECK: JVD not raised. Mass not palpable. RESPIRATORY: Effort increased. LUNGS: Diminished breath sounds. CARDIOVASCULAR: First and second sounds normal. No edema. ABDOMEN: Soft, nontender. Liver and spleen not palpable. PSYCHIATRY: Alert and oriented x3. Mood and affect normal. INVESTIGATIONS: Sodium 128, potassium 3.5. ASSESSMENT: 1. Severe hypoosmolar hyponatremia, possibly Syndrome of inappropriate antidiuretic hormone with improvement. 2. Small-cell lung cancer. Patient due for chemo and radiation treatment. 3. Chronic obstructive pulmonary disease in a current smoker. 4. Chronic nicotine dependence, patient is a cigarette smoker. 5. Gastroesophageal reflux disease. 6. Mild protein-calorie malnutrition from poor oral intake. 7. Hypothyroidism. 8. Acute delirium, multifactorial, improved. PLAN: Continue current medication and treatment plan. Care was discussed with the patient and . Chemoradiation as per Oncology. Care was discussed with both of them. MMODL / IJN: [id number] /
[2019-01-15] MEDS: LORazepam 2 MG/ML INJ IV PRN (02:26)
[2019-01-15 07:38] LABS: Anion Gap 8 mmol/L; Blood Urea Nitrogen 4 mg/dL (7-17); Calcium 9.1 mg/dL (8.4-10.2); Carbon Dioxide 26 mmol/L (22-30); Chloride 97 mmol/L (98-107); Glucose 85 mg/dL (74-99); Potassium 4.2 mmol/L (3.5-5.1); Sodium 131 mmol/L (137-145)
[2019-01-15] MEDS: IPRATROPIUM-ALBUTEROL 3 ML NEB INHALATION SCH ×3 (09:13→16:14)
[2019-01-15] MEDS: BUDESONIDE 1 MG/2 ML NEBU INHALATION SCH (09:13)
[2019-01-15] MEDS: NICOTINE 21MG/24HR PATCH TRANSDERM SCH (09:15)
[2019-01-15] MEDS: SODIUM CHLORIDE TAB 1 GM TAB PO SCH (09:15)
[2019-01-15 11:47] VITALS: BP 130/79; PULSE 81; RESP 18; TEMP 98
--- NOTE | 2019-01-15 18:14 | PN ---
PROGRESS NOTE Patient is seen for followup for hyponatremia. Her sodium has come up to 131. Patient is doing well. She was as low as 115 on initial admission. Patient was maintained on sodium chloride tablets. She also had IV fluids running, which were then held. Her urine osmolality was 395. She is potentially getting discharged today. On examination, when patient was seen blood pressure was 130/79, heart rate 81 per minute. She is afebrile. EXAMINATION OF THE HEART: S1 and S2. EXAMINATION OF LUNGS: Bilateral breath sounds are heard. ABDOMEN: Soft, non-tender. Examination of lower extremities shows no evidence of edema. CUSTOMER OPERATIONS REPRESENTATIVE exam is grossly intact. Sodium is up to 131. ASSESSMENT: Hyponatremia. Currently patient is euvolemic. She was initially hypovolemic; however, her volume status has improved. There may be an underlying component of SIADH as well. Serum sodium has improved. Patient is maintained on sodium chloride tablets. She should maintain fluid restriction post discharge as well as increase oral protein intake. She will need labs to be done in about 2-3 days post discharge to follow up on the sodium level. Patient is advised regarding fluid restriction, particularly free water. MMODL / IJN: [id number] /
--- NOTE | 2019-01-15 21:14 | P.PN ---
Subjective Progress Note Date: 01/15/19 Principal diagnosis: SIADH secondary to SCLC In follow up today, once pt aroused she was very alert. She denies nausea, pain , CHIARA, moderate weakness. Objective - Vital Signs Vital signs: Vital Signs Temp 98 F 01/15/19 11:46 Pulse 81 01/15/19 11:46 Resp 18 01/15/19 11:46 BP 130/79 01/15/19 11:46 Pulse Ox 94 L 01/15/19 11:46 Intake & Output 01/15/19 01/15/19 01/16/19 06:59 18:59 06:59 Intake Total 725 Balance 725 Intake: Intake, IV Titration 675 Amount Sodium Chloride 0.9% 1, 675 000 ml @ 75 mls/hr IV . [id number] [facility] Rx#:[id number] Oral 50 Other: Voiding Method Toilet Toilet # Voids 2 2 - Constitutional General appearance: Present: cooperative, no acute distress, thin - EENT Eyes: Present: anicteric sclerae, EOMI ENT: Present: hearing grossly normal, normal oropharynx - Respiratory Respiratory: bilateral: CTA, diminished - Cardiovascular Heart sounds: normal: S1, S2 Abnormal Heart Sounds: Absent: systolic murmur, diastolic murmur, rub, S3 Gallop , S4 Gallop, click, other - Peripheral edema leg Peripheral Edema: bilateral: None - Gastrointestinal General gastrointestinal: Present: normal bowel sounds, soft - Integumentary Integumentary: Present: normal - Neurologic Neurologic: Present: CNII-XII intact - Musculoskeletal Musculoskeletal: Present: generalized weakness, strength equal bilaterally - Psychiatric Psychiatric: Present: A&O x's 3, appropriate affect - Labs CBC & Chem 7: 01/12/19 08:48 01/15/19 06:55 Labs: Abnormal Lab Results - Last 24 Hours (Table) 01/15/19 Range/Units 06:55 Sodium 131 L (137-145) mmol/L Chloride 97 L (98-107) mmol/L BUN 4 L (7-17) mg/dL Creatinine 0.51 L (0.52-1.04) mg/dL Assessment and Plan (1) SIADH (syndrome of inappropriate ADH production) Narrative/Plan: Secondary to small cell lung cancer. Corrected Na+. Pt mental status is much better. Close monitoring of Na+ outpatient. Status: Acute Priority: High Code(s): E22.2 - SYNDROME OF INAPPROPRIATE SECRETION OF ANTIDIURETIC HORMONE SNOMED Code(s): 09540680 (2) Small cell lung cancer Narrative/Plan: Pt has not started treatment for limited stage SCLC. Did discuss case with IM. Plan is for discharge. Our office will contact pt to begin chemtherapy with concurrent XRT Status: Acute Priority: High Code(s): C34.90 - MALIGNANT NEOPLASM OF UNSP PART OF UNSP BRONCHUS OR LUNG SNOMED Code(s): 868455037
--- NOTE | 2019-01-16 05:55 | DS ---
DISCHARGE SUMMARY DATE OF ADMISSION: 01/12/2019 DATE OF DISCHARGE: 01/15/2019 FINAL DIAGNOSES: 1. Severe hypoosmolar hyponatremia, suspect SIADH from underlying small-cell lung cancer. 2. Small-cell lung cancer. The patient due to start chemo and radiation treatment. 3. Chronic obstructive pulmonary disease in a current smoker. 4. Chronic nicotine dependence. Patient is a cigarette smoker. 5. Gastroesophageal reflux disease. 6. Mild protein-calorie malnutrition from poor oral intake. 7. Hypothyroidism. 8. Acute delirium, multifactorial, improved. CONSULTATION: Dr. Urias from Oncology; Dr. Bronson from Nephrology. HOSPITAL COURSE: This patient who has been diagnosed with non-small cell lung cancer due to start chemo and radiation presented with weak, tired, run down. The patient's sodium was down to 115, did come up to 131 by the time of discharge. The patient is tolerating a diet, doing better, started to ambulate. The patient is counseled about smoking cessation. Today spoke at length to the patient and the . The then also spoke to hCa from oncology in detail. Also spoke to radiation oncologist. Chemo and radiation will be starting briefly as coordinated by the oncologist. Discussion and discharge planning more than 35 minutes. On examination, temperature 98, pulse 81, respiration 18, blood pressure 130/79, pulse ox 94% on room air. LUNGS: Slightly decreased breath sounds. PSYCH: AO x3. INVESTIGATIONS: Sodium 131, potassium 4.2. DISCHARGE MEDICATIONS: 1. Synthroid 112 mcg p.o. daily. 2. Omeprazole 40 mg daily. 3. [place] 5 one tablet q.i.d. p.r.n. 4. Ensure Plus 1 can p.o. t.i.d. 5. Zofran 4 mg q.8 p.r.n. 6. Ventolin HFA 1 or 2 puffs q.6 p.r.n. 7. Atrovent HFA 2 puffs q.i.d. 8. Nicotine 21 mg patch daily. 9. Sodium chloride tablet 1 gram p.o. b.i.d. Follow up with Dr. Jaeger on 01/29/2019; Dr. Fortune on 01/25/2019. MMODL / IJN: [id number] /
== END 2019-01-15 16:45 | disposition home health service (06) | DRG 644 ==
LOC: EC 07:58 → 3NMEDONC 10:34
PROVIDERS: ADMIT Hospitalist; ATTEND Hospitalist
DX: E22.2 Syndrome of inappropriate secretion of antidiuretic hormone (principal); C34.91 Malignant neoplasm of unspecified part of right bronchus or lung; C77.1 Secondary and unspecified malignant neoplasm of intrathoracic lymph nodes; E44.1 Mild protein-calorie malnutrition; F05 Delirium due to known physiological condition; Z68.21 Body mass index [BMI] 21.0-21.9, adult; F17.210 Nicotine dependence, cigarettes, uncomplicated; E03.9 Hypothyroidism, unspecified; E86.1 Hypovolemia; E87.6 Hypokalemia; J44.9 Chronic obstructive pulmonary disease, unspecified; K21.9 Gastro-esophageal reflux disease without esophagitis; Z91.81 History of falling; Z79.890 Hormone replacement therapy; Z80.3 Family history of malignant neoplasm of breast; Z79.899 Other long term (current) drug therapy; Z88.2 Allergy status to sulfonamides; Z91.040 Latex allergy status; Z71.6 Tobacco abuse counseling
CPT/HCPCS: 36415; 70470; 71046; 80048; 80053; 81001; 83930; 83935; 84295; 84300; 84443; 85025; 85610; 85730; 93005; 96360; 96361; 99285

== ENCOUNTER → 2019-02-16 | Outpatient (CLI) | payer OTHER ==
--- NOTE | 2019-02-17 08:20 | MR ---
EXAMINATION TYPE: MR cspine/tspine wo/w con DATE OF EXAM: 02/16/2019 COMPARISON: Nuclear medicine PET/CT 12/30/2018 HISTORY: Lung Cancer / Lower Ext Weakness TECHNIQUE: Multiplanar, multisequence images of the lumbar spine is performed without and with IV contrast, util izing 5.5 mL intravenous Gadavist FINDINGS: Cervical spine: Multilevel spondylosis is present, loss of disc height signal is greatest at C5-6. Th ere are endplate discogenic marrow signal changes. Cervical cord signal is normal. There is no eviden t significant spinal stenosis. C2-3: No disc herniation or foraminal encroachment C3-4: Right-sided foraminal encroachment is present due to uncovertebral joint hypertrophy and facet arthropathy change. Small posterior disc bulge causes only slight anterior mass effect on the thecal sac. C4-5: No significant foraminal encroachment or disc herniation C5-6: Posterior extension of endplate disc complex causes only mild anterior mass effect on the theca l sac. Bilateral foraminal encroachment is present due to lateral extension endplate disc complexes. C6-7: No significant central stenosis or disc herniation. Some mild left-sided foraminal encroachment noted. C7-T1: Unremarkable. No abnormal enhancement following contrast administration. IMPRESSION: Degenerative disc disease Thoracic spine: Sagittal images of the thoracic spine show vertebral body heights and alignment to ap pear satisfactory. There is a mild scoliosis. The thoracic cord signal is normal. T11 shows probable artifact rather than true signal change. Multilevel spondylosis is present. There is some loss of dis c height and signal at intervertebral levels of T8-9, T7-8, T6-7 compatible with disc desiccation and degenerative disc disease, there is associated spondylosis. Facet arthropathy changes are present at the lower thoracic spine which cause some posterior lateral mass effect on the thecal sac especially at T9-10. There is no significant spinal stenosis, foraminal encroachment. Axial images show small central disc protrusion at T7-8, T6-7 shows a left posterior paracentral disc protrusion causing only minimal anterior mass effect on the thecal sac. IMPRESSION: Degenerative disc disease, scoliosis, suspect artifact as described at T11 rather than tr ue marrow signal change.
== END | disposition home or self-care (01) ==
LOC: RADMRIMAIN 20:03
PROVIDERS: ATTEND Internal Medicine Hematology & Oncology
DX: C34.90 Malignant neoplasm of unspecified part of unspecified bronchus or lung (principal); M50.33 Other cervical disc degeneration, cervicothoracic region; M41.84 Other forms of scoliosis, thoracic region
CPT/HCPCS: 72156; 72157; A9585

== ENCOUNTER → 2019-02-20 | Day surgery (SDC) | payer OTHER ==
[~2019-02-20] MED LIST changes: -HYDROmorphone 0.5 MG/0.5 ML SYRINGE IVP PRN; +IV FLUID CONTINUATION 1,000 ML IV ONE; -LACTATED RINGERS 1,000 ML IV ONE; +LIDOCAINE 1% 20 ML VIAL (10MG/ML) FOR IV START INTRADERMA ONE; -LIDOCAINE 1% 20 ML VIAL (10MG/ML) FOR IV START INTRADERMA PRN; -LIDOCAINE VISCOUS 2% 15 ML CUP MUCOUS MEM ONE; -ONDANSETRON 4 MG/2 ML VIAL IVP ONE
[2019-02-20 08:34] VITALS: TEMP 97.6
--- NOTE | 2019-02-20 09:07 | P.PCN ---
Date of Procedure: 02/20/19 Procedure(s) Performed: Preoperative diagnosis: Lung cancer Post operative diagnoses: Lung cancer Anesthesia = moderate sedation with Versed 2 mg and fentanyl 100 g , and local infiltration with lidocaine 1% 2 mL. Condition: stable Complication: none. Description of the procedure procedure= this is 53 years old female with a history of colon cancer patient had, numbness, and tingling sensation in the upper, and lower extremity ,and she was referred to have diagnostic lumbar puncture, risk and benefits discussed with the patient and family, consent signed. Patient and the procedure area placed in sitting position, sedation was given to decrease patient and anxiety , the back prepped with chlorhexidine 3 times, local infiltration of the skin and subcutaneous tissue with lidocaine 1% 2 mL for skin and subcu interstitial frustrations at L4 5 levels then 22- gauge Quincke-type needle advanced slowly at L4- 5 interlaminar space there was positive cerebrospinal fluid which was clear, no heme, no paresthesia ,total of 8 ML of clear cerebrospinal fluid collected in 4 different tubes 2 mL in each, then the needle removed and a Band-Aid applied and patient tolerated the procedure well without any complications.
[2019-02-20 09:18] VITALS: RESP 18
[2019-02-20 09:31] LABS: Anion Gap 9 mmol/L; Blood Urea Nitrogen 12 mg/dL (7-17); Calcium 9.8 mg/dL (8.4-10.2); Carbon Dioxide 26 mmol/L (22-30); Chloride 102 mmol/L (98-107); Glucose 91 mg/dL (74-99); Potassium 4.9 mmol/L (3.5-5.1); Sodium 137 mmol/L (137-145)
[2019-02-20 10:34] VITALS: BP 125/85; PULSE 89
[2019-02-20 14:43] LABS: Total Protein,CSF 57 mg/dL (12-60)
[2019-02-20 17:08] LABS: Appearance,CSF Clear; CSF Tube Number 3; CSF Tube Volume 1.5; Nucleated Cells, CSF 1 u/L (0-5); Red Blood Cell,CSF 12 u/L (0-10)
[2019-02-20 17:09] LABS: Red Blood Cell, CSF Crenated 0 %; Red Blood Cell, CSF Fresh 100 %
== END | disposition home or self-care (01) ==
LOC: ORPAIN 07:31
PROVIDERS: ATTEND Specialist
DX: C34.91 Malignant neoplasm of unspecified part of right bronchus or lung (principal); E03.9 Hypothyroidism, unspecified; Z85.038 Personal history of other malignant neoplasm of large intestine; Z87.891 Personal history of nicotine dependence; Z88.2 Allergy status to sulfonamides
CPT/HCPCS: 88108; 84157; 80048; 89050; 62270; J2250; J2001; J3010

== ENCOUNTER → 2019-05-31 | Outpatient (CLI) | payer OTHER ==
[2019-05-31 11:28] LABS: African American GFR (CKD) >90 (>60 ml/min/1.73 sqM); Blood Urea Nitrogen 13 mg/dL (7-17)
--- NOTE | 2019-05-31 13:18 | CT ---
EXAMINATION TYPE: CT ChestAbdPelvis w con DATE OF EXAM: 05/31/2019 INDICATION: Lung cancer COMPARISON: 12/30/2018 PET/CT CT DLP: 534.0 mGycm CONTRAST: Performed with Oral Contrast and with IV Contrast, patient injected with 100 mL of Isovue 300. TECHNIQUE: Axial images at 5 mm thick sections. Reconstructed images in the coronal plane. Delayed images through the kidneys. FINDINGS: CT CHEST: Thyroid is not well visualized. No suspicious lung nodules or focal infiltrates are present. No enlarged mediastinal or hilar adenopathy is evident. The ascending aorta diameter at the level of the main pulmonary artery is 2.9 cm. The main pulmonary artery diameter at the bifurcation is 2.[address] ABDOMEN: Liver: Normal Spleen: Normal Pancreas: Normal Adrenal glands: The adrenal glands are normal. Gallbladder: Normal Kidneys: No masses are evident. No hydronephrosis is present. No cysts are present. Delayed images were obtained through the kidneys, which remain unremarkable. Aorta: Vascular calcification is within the aorta. Inferior vena cava: Normal. CT PELVIS: Loops of bowel within the abdomen and pelvis are normal. There are loops of bowel which are incom pletely distended or lack oral contrast limiting their evaluation. Diverticular changes are within th e sigmoid colon. Appendix: Normal as visualized. Urinary bladder: Decompressed with limited evaluation. Genitourinary structures: Uterus and adnexal regions appear within normal limits. Osseous structures: No suspicious lytic or sclerotic lesions. IMPRESSIONS: 1. No suspicious changes for recurrent or metastatic lung cancer
== END | disposition home or self-care (01) ==
LOC: RADPROMAIN 10:33
PROVIDERS: ATTEND Internal Medicine Hematology & Oncology
DX: C34.91 Malignant neoplasm of unspecified part of right bronchus or lung (principal); Z88.2 Allergy status to sulfonamides
CPT/HCPCS: 82565; 84520; 71260; 74177; J1642; Q9967 ×2

== ENCOUNTER → 2019-06-04 | Outpatient (CLI) | payer OTHER ==
--- NOTE | 2019-06-05 16:28 | MR ---
EXAMINATION TYPE: MR brain wo/w con DATE OF EXAM: 06/04/2019 1:14 PM COMPARISON: 02/02/2019 HISTORY: Lung ca, mets Contrast: 6.5 mL Gadavist FINDINGS: The ventricles, basal cisterns and sulci overlying the cerebral convexities are mildly enlarged. There is evidence of mild periventricular white matter ischemic demyelination. Remote deep white matter insults are also noted. No acute edema is seen on diffusion weighted imaging. There is no evidence for midline shift or mass effect. Acute intracranial hemorrhage or extra-axial collection is not evident. The paranasal sinuses and mastoid air cells are well-aerated. IMPRESSION: Age-related atrophic and chronic small vessel ischemic change. No acute intracranial process at this time. No pathologic enhancement at this time.
== END | disposition home or self-care (01) ==
LOC: RADMRIMAIN 11:27
PROVIDERS: ATTEND Radiology Radiation Oncology
DX: G31.1 Senile degeneration of brain, not elsewhere classified (principal); I67.82 Cerebral ischemia; Z87.891 Personal history of nicotine dependence; Z92.21 Personal history of antineoplastic chemotherapy
CPT/HCPCS: 70553; A9585

== ENCOUNTER → 2019-07-26 | Outpatient (CLI) | payer OTHER ==
--- NOTE | 2019-07-26 11:15 | XR ---
EXAMINATION TYPE: XR chest 2V DATE OF EXAM: 07/26/2019 COMPARISON: Chest x-ray January 12, 2019. CT May 31, 2019 HISTORY: Shortness of breath, history of lung cancer TECHNIQUE: Frontal and lateral views of the chest are obtained. FINDINGS: There is stable right internal jugular Mediport catheter. There is background chronic emphy sematous change. There is no suspicious focal air space opacity or pneumothorax seen. New tiny left- sided effusion are present as there is blunting of posterior costophrenic angle felt left costophreni c angle. The cardiac silhouette size is stable and mildly enlarged. The osseous structures are int act. IMPRESSION: Chronic emphysematous change and mild cardiomegaly with new tiny left pleural effusion f elt present.
== END | disposition home or self-care (01) ==
LOC: RADXRMAIN 10:57
PROVIDERS: ATTEND Internal Medicine Hematology & Oncology
DX: J43.9 Emphysema, unspecified (principal); J90 Pleural effusion, not elsewhere classified; I51.7 Cardiomegaly; C34.91 Malignant neoplasm of unspecified part of right bronchus or lung; G73.1 Lambert-Eaton syndrome in neoplastic disease; E03.9 Hypothyroidism, unspecified
CPT/HCPCS: 71046

== ENCOUNTER → 2019-08-09 | Outpatient (CLI) | payer OTHER ==
--- NOTE | 2019-08-09 13:22 | US ---
EXAMINATION TYPE: US abdomen complete DATE OF EXAM: 08/09/2019 COMPARISON: NONE CLINICAL HISTORY: R10.12 Abdomen pain left upper quadrant. LUQ pain for a few weeks, none today, h/o small cell lung CA EXAM MEASUREMENTS: Liver Length: 14.1 cm Gallbladder Wall: 0.2 cm CBD: 0.5 cm Spleen: 9.8 cm Right Kidney: 10.2 x 4.6 x 4.5 cm Left Kidney: 9.8 x 3.9 x 4.8 cm Pancreas: wnl Liver: wnl Gallbladder: wnl Evidence for sonographic Duran's sign: no CBD: wnl Spleen: wnl Right Kidney: wnl Left Kidney: wnl Upper IVC: wnl Abd Aorta: wnl The liver is homogenous. The intrahepatic portion of the IVC and proximal abdominal aorta are within normal limits. There is no evidence of cholelithiasis. Common bile duct is unremarkable. The visu alized portions of the pancreas are homogenous. The spleen is unremarkable. Kidneys are symmetric a nd free of hydronephrosis. No renal lesions are seen. IMPRESSION: Unremarkable abdominal ultrasound.
== END | disposition home or self-care (01) ==
LOC: RADUSWWP 09:02
PROVIDERS: ATTEND Internal Medicine Hematology & Oncology
DX: R10.12 Left upper quadrant pain (principal); Z88.2 Allergy status to sulfonamides
CPT/HCPCS: 76700

== ENCOUNTER → 2019-08-23 | Outpatient (CLI) | payer OTHER ==
--- NOTE | 2019-08-23 13:37 | MR ---
EXAMINATION TYPE: MR brain wo/w con DATE OF EXAM: 08/23/2019 COMPARISON: MRI brain June 04, 2019 and older studies. HISTORY: F/U, LUng CA TECHNIQUE: Multiplanar, multisequence images of the brain and brainstem is performed without and with IV contras t, utilizing 6.5 mL intravenous Gadavist . FINDINGS: Diffusion weighted images demonstrate no evidence of a recent infarct or other diffusion ab normality. There is no worrisome extra-axial fluid collection. Mild ventricular and sulcal prominenc e is redemonstrated. Occasional small scattered focus of T2 hyperintensity throughout the white matte r is again seen. For reference 4 mm lesion near frontoparietal junction on the left axial image 19 is stable. Midline structures demonstrate normal morphology. The craniocervical junction appears within normal limits. Post contrast images demonstrate no abnormal enhancement. The dural venous sinuses appear pa tent. The visualized sinuses are clear and the globes are intact. IMPRESSION: Stable mild to minimal diffuse age-related cerebral atrophy and mild chronic small vessel ischemic changes. No suspicious enhancement on current study. No significant change from prior studi es.
== END | disposition home or self-care (01) ==
LOC: RADMRIMAIN 12:23
PROVIDERS: ATTEND Radiology Radiation Oncology
DX: G31.1 Senile degeneration of brain, not elsewhere classified (principal); I67.82 Cerebral ischemia; C34.31 Malignant neoplasm of lower lobe, right bronchus or lung; Z92.21 Personal history of antineoplastic chemotherapy; Z87.891 Personal history of nicotine dependence
CPT/HCPCS: 70553; A9585

== ENCOUNTER 2019-09-17 15:20 | Inpatient (IN) | payer OTHER ==
[2019-09-17 16:33] LABS: Basophils % (A) 1 %; Eosinophils # (A) 0.1 k/uL (0-0.7); Eosinophils % (A) 2 %; HCT 34.8 % (34.0-46.0); HGB 11.9 gm/dL (11.4-16.0); Lymphocytes # (A) 1.1 k/uL (1.0-4.8); Lymphocytes % (A) 19 %; MCH 32.2 pg (25.0-35.0); MCHC 34.1 g/dL (31.0-37.0); MCV 94.4 fL (80.0-100.0); Mean Platelet Volume 5.7; Monocytes # (A) 0.4 k/uL (0-1.0); Monocytes % (A) 7 %; Neutrophils # (A) 3.8 k/uL (1.3-7.7); Neutrophils % (A) 69 %; Platelet Count 319 k/uL (150-450); RBC 3.69 m/uL (3.80-5.40); RDW 13.5 % (11.5-15.5); WBC 5.5 k/uL (3.8-10.6)
--- NOTE | 2019-09-17 16:35 | XR ---
EXAMINATION TYPE: XR chest 2V DATE OF EXAM: 09/17/2019 COMPARISON: None HISTORY: 54-year-old female with cough and pain TECHNIQUE: AP and lateral views FINDINGS: Right anterior chest wall injection port with catheter tip at the lower SVC. Heart upper limits of no rmal in size. Epicardial fat pad at the cardiac apex. Hyperinflation. No consolidation or pleural eff usion. IMPRESSION: Borderline heart size. Suspect underlying COPD. No definite acute process.
--- NOTE | 2019-09-17 16:44 | CT ---
EXAMINATION TYPE: CT brain wo con DATE OF EXAM: 09/17/2019 COMPARISON: 01/12/2019 HISTORY: 54-year-old female difficulty with ambulation. TECHNIQUE: Examination was done in axial plane without intravenous contrast. Coronal and sagittal r econstructions performed. CT DLP: 995.8 mGycm Automated exposure control for dose reduction was used. FINDINGS: There is no evidence of acute intracranial hemorrhage, acute ischemic changes, mass, mass-effect, or extra-axial fluid collection. There is no effacement of cerebral sulci or basal subarachnoid cister ns. There is no hydrocephalus. There is no midline shift. Aparicio-white matter distinction is preserv ed. Visualized paranasal sinuses and orbits and globes and mastoid air cells appear clear. IMPRESSION: No acute intracranial abnormality seen.
[2019-09-17 16:47] LABS: INR 0.9 (<1.2); Partial Thromboplastin Time 34.6 sec (22.0-30.0); Prothrombin Time 9.7 sec (9.0-12.0)
[2019-09-17 16:50] LABS: ALT 19 U/L (9-52); AST 21 U/L (14-36); African American GFR (CKD) >90 (>60 ml/min/1.73 sqM); Albumin 3.5 g/dL (3.5-5.0); Alkaline Phosphatase 68 U/L (38-126); Anion Gap 8 mmol/L; Blood Urea Nitrogen 15 mg/dL (7-17); Calcium 8.9 mg/dL (8.4-10.2); Carbon Dioxide 23 mmol/L (22-30); Chloride 109 mmol/L (98-107); Glucose 114 mg/dL (74-99); Potassium 3.9 mmol/L (3.5-5.1); Sodium 140 mmol/L (137-145); Total Bilirubin 0.3 mg/dL (0.2-1.3); Total Protein 7.2 g/dL (6.3-8.2)
--- NOTE | 2019-09-17 18:02 | ED ---
Neuro HPI - General Chief Complaint: Neuro Symptoms/Deficit Stated Complaint: off balance/trouble walking Time Seen by Provider: 09/17/19 15:30 Source: patient Mode of arrival: ambulatory Limitations: no limitations, physical limitation - History of Present Illness Is the patient presenting with stroke symptoms?: No Initial Comments: The patient is a 54-year-old female with past medical history of lung cancer and Lambert-Eaton syndrome who presents to the emergency department with reported difficulties with ambulation. The patient's is at bedside and helps provide history. The patient did receive chemo and radiation therapy, the last of which was provided in May. Her oncologist was Dr. Fortune. 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 She was placed on IVIG. She did get infusions on August 17 and . She also had a second infusion on the and . is unsure if the symptoms are related to the injections. He states that she has had worsening confusion. Reports that she has been able to use a walker to get up and ambulate bathroom however over the past few weeks she is unable to get up at all. This has resulted in her carrying her to the bathroom. She does see Dr. Rodrigues in office. They deny any neck or back pain. No changes in the patient's bowel or bladder habits. No recent fevers or chills. No blunt head trauma. Denies any unilateral numbness or weakness. No headaches or visual changes. No slurred speech or facial droop. reports the patient has difficulties with concentration at times. Denies chest pain or shortness of breath. There are no other alleviating, precipitating or modifying factors - Related Data Home Medications: Home Medications Medication Instructions Recorded Confirmed Levothyroxine Sodium [Synthroid] 112 mcg PO DAILY 12/19/18 09/17/19 Omeprazole 40 mg PO DAILY 12/29/18 09/17/19 HYDROcodone/APAP 5-325MG [[place] 1 tab PO Q6H PRN 01/01/19 09/17/19 5-325] Ondansetron [Zofran] 4 mg PO Q8H PRN 01/12/19 09/17/19 Ipratropium [place] [Atrovent Hfa] 2 puff INHALATION RT-QID PRN 01/23/19 09/17/19 Amitriptyline HCl [Elavil] 25 mg PO HS 09/17/19 09/17/19 Diazepam [Valium] 2 mg PO BID PRN 09/17/19 09/17/19 Ergocalciferol [Vitamin D2] 50,000 unit PO Q14D 09/17/19 09/17/19 Ibuprofen [Motrin] 800 mg PO TID PRN 09/17/19 09/17/19 Lidocaine-Prilocaine Cream [[place] 1 applic TOPICAL DAILY PRN 09/17/19 09/17/19 Cream 2.5%/2.5%] Methocarbamol [Robaxin] 500 mg PO TID PRN 09/17/19 09/17/19 Sodium Chloride Tab 1 gm PO DAILY 09/17/19 09/17/19 Allergies/Adverse Reactions: Allergies Allergy/AdvReac Type Severity Reaction Status Date / Time Sulfa (Sulfonamide Allergy Rash/Hives Verified 09/17/19 16:18 Antibiotics) latex AdvReac Rash/Hives Verified 09/17/19 16:18 METAL Allergy Rash/Hives Uncoded 09/17/19 16:19 Review of Systems ROS Statement: Those systems with pertinent positive or pertinent negative responses have been documented in the HPI. ROS Other: All systems not noted in ROS Statement are negative. General Exam Limitations: physical limitation General appearance: alert Head exam: Present: atraumatic, normocephalic Eye exam: Present: normal appearance, PERRL, EOMI ENT exam: Present: normal exam, mucous membranes moist Neck exam: Present: normal inspection. Absent: tenderness, meningismus Respiratory exam: Present: normal lung sounds bilaterally. Absent: respiratory distress, wheezes, rales Cardiovascular Exam: Present: regular rate, normal rhythm GI/Abdominal exam: Present: soft. Absent: distended, tenderness, guarding, rebound, rigid Rectal exam: Present: deferred Extremities exam: Present: other (heel to schaffer and finger to nose is difficult for the patient bilaterally. Multiple attempts required. Patient non abulatory in the ED. Drift in the bilaterally lower extremities. ) Back exam: Present: normal inspection. Absent: tenderness Neurological exam: Present: alert Psychiatric exam: Present: flat affect Skin exam: Present: warm, dry, intact Stroke MDM - Lab Data Result diagrams: 09/17/19 16:15 09/17/19 16:15 Lab Results 09/17/19 09/17/19 09/17/19 Range/Units 16:15 16:15 16:15 WBC 5.5 (3.8-10.6) k/uL RBC 3.69 L (3.80-5.40) m/uL Hgb 11.9 (11.4-16.0) gm/dL Hct 34.8 (34.0-46.0) % MCV 94.4 (80.0-100.0) fL MCH 32.2 (25.0-35.0) pg MCHC 34.1 (31.0-37.0) g/dL RDW 13.5 (11.5-15.5) % Plt Count 319 (150-450) k/uL Neutrophils % 69 % Lymphocytes % 19 % Monocytes % 7 % Eosinophils % 2 % Basophils % 1 % Neutrophils # 3.8 (1.3-7.7) k/uL Lymphocytes # 1.1 (1.0-4.8) k/uL Monocytes # 0.4 (0-1.0) k/uL Eosinophils # 0.1 (0-0.7) k/uL Basophils # 0.0 (0-0.2) k/uL PT 9.7 (9.0-12.0) sec INR 0.9 (<1.2) APTT 34.6 H (22.0-30.0) sec Sodium 140 (137-145) mmol/L Potassium 3.9 (3.5-5.1) mmol/L Chloride 109 H (98-107) mmol/L Carbon Dioxide 23 (22-30) mmol/L Anion Gap 8 mmol/L BUN 15 (7-17) mg/dL Creatinine 0.72 (0.52-1.04) mg/dL Est GFR (CKD-EPI)AfAm >90 (>60 ml/min/1.73 sqM) Est GFR (CKD-EPI)NonAf >90 (>60 ml/min/1.73 sqM) Glucose 114 H (74-99) mg/dL Calcium 8.9 (8.4-10.2) mg/dL Total Bilirubin 0.3 (0.2-1.3) mg/dL AST 21 (14-36) U/L ALT 19 (9-52) U/L Alkaline Phosphatase 68 (38-126) U/L Troponin I (0.000-0.034) ng/mL Total Protein 7.2 (6.3-8.2) g/dL Albumin 3.5 (3.5-5.0) g/dL 09/17/19 Range/Units 16:15 WBC (3.8-10.6) k/uL RBC (3.80-5.40) m/uL Hgb (11.4-16.0) gm/dL Hct (34.0-46.0) % MCV (80.0-100.0) fL MCH (25.0-35.0) pg MCHC (31.0-37.0) g/dL RDW (11.5-15.5) % Plt Count (150-450) k/uL Neutrophils % % Lymphocytes % % Monocytes % % Eosinophils % % Basophils % % Neutrophils # (1.3-7.7) k/uL Lymphocytes # (1.0-4.8) k/uL Monocytes # (0-1.0) k/uL Eosinophils # (0-0.7) k/uL Basophils # (0-0.2) k/uL PT (9.0-12.0) sec INR (<1.2) APTT (22.0-30.0) sec Sodium (137-145) mmol/L Potassium (3.5-5.1) mmol/L Chloride (98-107) mmol/L Carbon Dioxide (22-30) mmol/L Anion Gap mmol/L BUN (7-17) mg/dL Creatinine (0.52-1.04) mg/dL Est GFR (CKD-EPI)AfAm (>60 ml/min/1.73 sqM) Est GFR (CKD-EPI)NonAf (>60 ml/min/1.73 sqM) Glucose (74-99) mg/dL Calcium (8.4-10.2) mg/dL Total Bilirubin (0.2-1.3) mg/dL AST (14-36) U/L ALT (9-52) U/L Alkaline Phosphatase (38-126) U/L Troponin I <0.012 (0.000-0.034) ng/mL Total Protein (6.3-8.2) g/dL Albumin (3.5-5.0) g/dL - Medical Decision Making Upon arrival the patient was placed into room 6. A thorough history and physical exam was performed. Peripheral IV is established. We did complete a 12-lead EKG which demonstrates sinus tachycardia. Laboratory studies are unremarkable. CT of the patient's brain demonstrates no acute intracranial normality. I also performed a chest x-ray which demonstrates borderline heart size. Discuss these results the patient. I did recommend hospital admission for evaluation by oncology and neurology. The patient and her agreed to this. Bridging orders were placed. I did talk to Dr. Cisneros who accepted admission for the patient. She was transported to the floor in stable condition 09/17/19 18:01 EKG demonstrates a sinus tachycardia with a ventricular rate of 113. NH interval 172. QRS 84. QTC of 460. There are no acute ST segment elevations or depressions concerning for ischemic changes. Inverted T-wave in lead 3. Past Medical History Past Medical History: Cancer, GERD/Reflux, Thyroid Disorder Additional Past Medical History / Comment(s): Recently diagnosed with R side small cell lung cancer-to start treatment with chemo/radiation on 01/15/19, recently found enlarged lymph node in chest, abdominal pain and recent weight loss. History of Any Multi-Drug Resistant Organisms: None Reported Past Surgical History: Orthopedic Surgery Additional Past Surgical History / Comment(s): ORIF alva ankles, lt knee arthroscopy, bronchoscopy with bx, R upper chest port insertion. Past Anesthesia/Blood Transfusion Reactions: No Reported Reaction Additional Past Anesthesia/Blood Transfusion Reaction / Comment(s): no hx blood transfusion Past Psychological History: No Psychological Hx Reported Smoking Status: Current some day smoker Past Alcohol Use History: None Reported Past Drug Use History: None Reported - Past Family History Mother Family Medical History: Cancer Additional Family Medical History / Comment(s): Mother had breast cancer. She is . Father Family Medical History: No Reported History Additional Family Medical History / Comment(s): Father is healthy and 82 yrs old. Course Vital Signs 09/17/19 09/17/19 09/17/19 15:22 15:49 17:27 Temperature 98.8 F 98.1 F Pulse Rate 131 H 118 H 114 H Respiratory 20 18 18 Rate Blood Pressure 101/74 118/77 110/80 O2 Sat by Pulse 98 97 98 Oximetry 09/17/19 18:46 Temperature Pulse Rate 103 H Respiratory 18 Rate Blood Pressure 107/69 O2 Sat by Pulse 96 Oximetry Disposition Clinical Impression: Small cell lung cancer, Mental status alteration, Lambert-Eaton syndrome Disposition: ADMITTED IP TO THIS HOSP Condition: Serious Is patient prescribed a controlled substance at d/c from ED?: No Decision to Admit Reason: Admit from EC Decision Date: 09/17/19 Decision Time: 18:36
[2019-09-17] MEDS ORDERED: NALOXONE 0.4 MG/ML 1 ML VIAL IV PRN (18:27)
[2019-09-17] MEDS ORDERED: IBUPROFEN 800 MG TAB PO PRN (18:31)
[2019-09-17] MEDS ORDERED: LIDOCAINE-PRILOCAINE 2.5-2.5% CREAM 5 GM TUBE TOPICAL PRN (18:31)
[2019-09-17] MEDS ORDERED: IPRATROPIUM 0.5 MG/2.5 ML NEBU INHALATION PRN (18:31)
[2019-09-17] MEDS ORDERED: ONDANSETRON 4 MG TAB PO PRN (18:31)
[2019-09-17 20:05] VITALS: BMI 22.9
[2019-09-17] MEDS: AMITRIPTYLINE HCL 25 MG TAB PO SCH (20:12)
[2019-09-17] MEDS: METHOCARBAMOL 500 MG TAB PO PRN (20:46)
[2019-09-18] MEDS: LEVOTHYROXINE 112 MCG TAB PO SCH (05:36)
[2019-09-18] MEDS: PANTOPRAZOLE 40 MG TABLET PO SCH (08:03)
[2019-09-18] MEDS: SODIUM CHLORIDE TAB 1 GM TAB PO SCH (08:03)
--- NOTE | 2019-09-18 09:19 | P.PN ---
Progress Note - Text Progress Note Date: 09/18/19 Thax for the consult Full consult to be dictated SCLC, s/p chemo RT- in remission Recent diagnosis of paraneoplastic Eaton Lambert- just IVIg admitted with progressive weakness. Numbness in lower abd, upper LE, paresis of rt fingers, weakness in ankles, invol head movements. UE/LE prox strength fairly normal S/S seems more typical of polyneuropathy, ? acute demyelinating type MRI brain 08/23 -ve Check MR spinal survey IV steroids Neuro consult
[2019-09-18] MEDS: DEXAMETHASONE SOD PHOSPHATE 10 MG/ML 1 ML VIAL IV SCH ×3 (12:50→23:30)
--- NOTE | 2019-09-18 14:12 | MR ---
EXAMINATION TYPE: MR brain wo/w con DATE OF EXAM: 09/18/2019 COMPARISON: MR dated 08/23/2019 of the brain HISTORY: Altered mental status. History of Lambert Eaton syndrome. History of lung cancer. TECHNIQUE: Multiplanar, multisequence images of the brain and brainstem is performed without and with IV contras t, utilizing 6.5 mL intravenous Gadavist . FINDINGS: T2 shine through is seen of the medial cortex of the high right frontal lobe. In the deep w debi matter of the superior right frontal gyrus there is questionable restricted diffusion however. T his was not seen on the prior of 08/23/2019 overall finding appears subacute. There is no abnormal en hancement. There is associated abnormal T2/FLAIR hyperintense signal in a gyriform morphology and There is no extra-axial fluid collection. Additional foci of T2/FLAIR hyperintensity scattered throug hout the periventricular and subcortical white matter are similar brain to the prior exam of 08/23/20 19. The ventricular system and cisternal spaces are again symmetrically prominent compatible with mil d degree age-related volume loss. The brain volume is age appropriate. Midline structures demonstrate normal morphology. The craniocervical junction appears within normal limits. Post contrast images demonstrate no abnormal enhancement. The dural venous sinuses appear pa tent. The visualized sinuses are clear and the globes are intact. IMPRESSION: 1. Abnormal signal along the medial right frontal superior gyrus without abnormal enhancement. Differ ential is for subacute cortical infarct although encephalitis is favored given the gyriform contour. Autoimmune encephalitis is possible given the patient's history. These are favored over demyelinating disease in the morphology. 2. Mild burden nonspecific white matter change similar to the prior of 08/23/2019.
--- NOTE | 2019-09-18 15:32 | P.CNNES ---
History of Present Illness Consult date: 09/18/19 Reason for Consult: Hx of Lambert-eaton syndrome, difficulty with ambulation Chief complaint: Hx of Lambert-eaton syndrome, difficulty with ambulation History of Present Illness: HISTORY OF PRESENT ILLNESS: Thank you for allowing me to evaluate Ms. Jordyn Powell. Ms. Powell is a 54-year-old woman with past medical history of small cell lung cancer, Lambert-Eaton syndrome, GERD, hypothyroidism, who presented to [facility] for difficulties with ambulation. Patient was started on chem otherapy and radiation in January 2019: Last round was in May 2019. Patient was started on IVIG for diagnosis of Lambert-Eaton syndrome, first infusion August 17 and and second infusion was on September 07 and . Patient was scheduled for next round on September 28 and . is at bedside with corroborating information. Patient first had various paresthesias before she was diagnosed with lung cancer. Patient has always had weakness in her lower extremities, but recently, patient started having difficulty even sitting up and standing up. It's acid and patient is playing with disease with her legs and she is not able to keep her feet on the ground when she tries to stand up. Patient got EMG/NCS which diagnosed her with Lambert-Eaton syndrome. The patient has been on prednisone and another medication that he cannot remember the name of, and then recently started IVIG. Patient and state that if anything, her symptoms of lower extremity weakness got worse although patient states that she had cramping in her legs that has improved. Patient also had her MRI brain with and without contrast along with EEG which didn't show any remarkable results. Denies any headache, double/blurry vision, dizziness. Patient sometimes has word finding difficulty that causes her to zone off for a little bit. PAST MEDICAL HISTORY: small cell lung cancer, Lambert-Eaton syndrome, GERD, hypothyroidism PAST SURGICAL HISTORY: ORIF Bilateral ankles, left knee arthroscopy HOME MEDICATIONS: Levothyroxine, omeprazole, [place], Zofran, Atrovent, Robaxin, amitriptyline, vitamin D, sodium chloride ALLERGIES: sulfa drugs, latex SOCIAL HISTORY: Current everyday smoker. FAMILY HISTORY: Mother had breast cancer. REVIEW OF SYSTEMS: The 14 systems are reviewed and no additional points are identified compared to the review of systems documented history and physical PHYSICAL EXAMINATION: VITAL SIGNS: T 97.7 HR 104 RR 16 O2 sat 100% on RA GEN.: NAD, pleasant and cooperative HEENT: NCAT, sclera without icterus NECK: Supple SKIN AND EXTREMITIES: Warm to touch, no edema NEURO: MENTAL STATUS: Patient alert and oriented to self, place, time. Able to name the current president. Speech fluent, able to name and repeat, following most commands readily. No right and left disorientation, neglect. CRANIAL NERVES II THROUGH XII: II: Pupils are equal and reactive to light symmetrically. No afferent pupillary defect. Visual ivy are intact. III, IV, : No ptosis. Extraocular movements full. No nystagmus. V: Facial sensation intact from V1-3. VII. No clear facial asymmetry. VIII: Hearing intact to finger rub bilaterally. IX, X: Symmetric palate elevation. XI: Shoulder shrug intact. XII: Tongue midline without fasciculation or atrophy. MOTOR: Normal bulk/tone. No pronator drift or tremor. Strength is 4/5 in bilateral upper and lower extremities. However, when patient tries to sit up, she is unable to, and she states that when her tried to get her to the toilet, she needed 100% assistance SENSORY: Intact to light touch in bilateral upper extremities patient cannot feel much below her knees bilaterally. However, sensation is intact to temperature in all 4 extremities. REFLEXES: 2+ throughout. Toes are upgoing. 2-3 beats of clonus. Tristan's is absent COORDINATION: Finger to nose intact. No dysmetria. Rapid alternating movements with significantly decreased accuracy with her right fingers but okay in her left hand GAIT: Deferred DIAGNOSTIC TESTING: LABORATORY: WBC 5.5 hemoglobin 11.9 platelets 219 PT 9.7 INR 0.9 sodium 140 potassium 3.9 chloride 109 bicarb 23 BUN 15 creatinine 0.72 glucose 114 AST 21 ALT 19 alk phos 68 troponin <0.012 IMAGING: CT head without contrast 09/17/2019: No acute intracranial abnormality. ASSESSMENT: 54-year-old woman with past medical history of small cell lung cancer, Lambert- Eaton syndrome, GERD, hypothyroidism, who presented to [facility] for difficulties with ambulation. This difficult to tell whether her weakness is from her Lambert-Eaton syndrome as her strength should get better with sustained movement, which could not be tested due to patient's significant weakness. Patient also with history of chemotherapy treatment, hence possible chemotherapy could cause peripheral neuropathy and plexopathy causing weakness. There is also possibility of metastasis to the brain. Etiology of her lower extremity weakness. RECOMMENDATIONS: 1. We'll obtain MRI brain with and without contrast 2. Plasmapheresis and/or immunosuppressive medications can be considered for further treatment of her Lambert-Eaton syndrome. Patient has not had any change but rather worsening in her symptoms since her first round of IVIG which was about a month ago. If MRI brain with and without contrast unremarkable, we'll consider transferring patient to either [facility] for a plasmapheresis trial. 3. Neurology will continue to follow Past Medical History Past Medical History: Cancer, GERD/Reflux, Thyroid Disorder Additional Past Medical History / Comment(s): Recently diagnosed with R side small cell lung cancer-to start treatment with chemo/radiation on 01/15/19, recently found enlarged lymph node in chest, abdominal pain and recent weight loss. History of Any Multi-Drug Resistant Organisms: None Reported Past Surgical History: Orthopedic Surgery Additional Past Surgical History / Comment(s): ORIF alva ankles, lt knee arthroscopy, bronchoscopy with bx, R upper chest port insertion. Past Anesthesia/Blood Transfusion Reactions: No Reported Reaction Additional Past Anesthesia/Blood Transfusion Reaction / Comment(s): no hx blood transfusion Past Psychological History: No Psychological Hx Reported Smoking Status: Current some day smoker Past Alcohol Use History: None Reported Past Drug Use History: None Reported - Past Family History Mother Family Medical History: Cancer Additional Family Medical History / Comment(s): Mother had breast cancer. She is . Father Family Medical History: No Reported History Additional Family Medical History / Comment(s): Father is healthy and 82 yrs old. Medications and Allergies Home Medications Medication Instructions Recorded Confirmed Type Levothyroxine Sodium [Synthroid] 112 mcg PO DAILY 12/19/18 09/17/19 History Omeprazole 40 mg PO DAILY 12/29/18 09/17/19 History HYDROcodone/APAP 5-325MG [[place] 1 tab PO Q6H PRN 01/01/19 09/17/19 History 5-325] Ondansetron [Zofran] 4 mg PO Q8H PRN 01/12/19 09/17/19 History Ipratropium [place] [Atrovent Hfa] 2 puff INHALATION RT-QID PRN 01/23/19 09/17/19 History Amitriptyline HCl [Elavil] 25 mg PO HS 09/17/19 09/17/19 History Diazepam [Valium] 2 mg PO BID PRN 09/17/19 09/17/19 History Ergocalciferol [Vitamin D2] 50,000 unit PO Q14D 09/17/19 09/17/19 History Ibuprofen [Motrin] 800 mg PO TID PRN 09/17/19 09/17/19 History Lidocaine-Prilocaine Cream [[place] 1 applic TOPICAL DAILY PRN 09/17/19 09/17/19 History Cream 2.5%/2.5%] Methocarbamol [Robaxin] 500 mg PO TID PRN 09/17/19 09/17/19 History Sodium Chloride Tab 1 gm PO DAILY 09/17/19 09/17/19 History Allergies Allergy/AdvReac Type Severity Reaction Status Date / Time Sulfa (Sulfonamide Allergy Rash/Hives Verified 09/17/19 16:18 Antibiotics) latex AdvReac Rash/Hives Verified 09/17/19 16:18 METAL Allergy Rash/Hives Uncoded 09/17/19 16:19 Physical Examination - Vital Signs Vital Signs: Vital Signs Temp Pulse Pulse Resp BP BP Pulse Ox 09/18/19 04:54 97.7 F 104 H 16 100 09/17/19 20:43 97.8 F 104 H 16 109/72 98 09/17/19 18:46 103 H 18 107/69 96 09/17/19 17:27 98.1 F 114 H 18 110/80 98 09/17/19 15:49 118 H 18 118/77 97 09/17/19 15:22 98.8 F 131 H 20 101/74 98 Intake and Output 09/17/19 09/18/19 09/18/19 22:59 06:59 14:59 Intake Total 60 160 Balance 60 160 Intake: IV 60 160 0.9 60 160 Other: Voiding Method Bedside Commode Bedside Commode # Voids 1 1 Weight 61.689 kg Results - Laboratory Findings CBC and BMP: 09/17/19 16:15 09/17/19 16:15 Abnormal Lab Findings: Abnormal Labs 09/17/19 09/17/19 09/17/19 16:15 16:15 16:15 RBC 3.69 L APTT 34.6 H Chloride 109 H Glucose 114 H
[2019-09-18] MEDS: METHOCARBAMOL 500 MG TAB PO PRN ×2 (16:49→21:05)
[2019-09-18] MEDS: HYDROcodone/APAP 5-325MG 1 EACH TAB PO PRN (16:49)
[2019-09-18] MEDS ORDERED: DOCUSATE 100 MG CAP PO STA (20:05)
[2019-09-18] MEDS: AMITRIPTYLINE HCL 25 MG TAB PO SCH (21:05)
--- NOTE | 2019-09-18 21:27 | P.HPIM ---
History of Present Illness H&P Date: 09/18/19 Chief Complaint: Difficulty walking History of presenting complaint: This is a pleasant 54 year old female patient of Dr. Selvin Jaeger. 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 She's been followed for Dr. Rodrigues from neurology. 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 Did receive treatment with chemotherapy and radiation treatment. Followed by Dr. Orozco. She is in remission. Patient has no trouble with her bowels or urine and appetite is fair. Able to feed himself. Patient recently had been using a walker. Oral course of time patient is now presents with weakness in the right arm. Left leg. She is finding too difficult to get up from the toilet seat. Has difficulty with walking 2. Patient is able to comb her hair and feed herself. Her to immunoglobulin infusions for an August 17 and September 06. Patient also had some confusion. The difficulty in walking this coming on over the last few weeks. Is no change in her vision. No headaches. She has neuropathy findings the lower extremity. Decreased sensation. Neurology was consulted. at the bedside. Review of systems: GEN.: Tired EYES: None HEENT: None NECK: None RESPIRATORY: None CARDIOVASCULAR: None GASTROINTESTINAL: None GENITOURINARY: None MUSCULOSKELETAL: Joint pains LYMPHATICS: None HEMATOLOGICAL: None PSYCHIATRY: None NEUROLOGICAL: Numbness and rest as above Past medical history to include: GERD, hypothyroid, small cell lung cancer, paraneoplastic syndrome, Eaton-La mbert syndrome Social history: . Smoked for close to 32 years stopped earlier this year. No alcohol. Physical examination: VITAL SIGNS: 97.7, 104, 16, 109/63, 100% room air GENERAL: BMI 22 propped up in bed awake. EYES: Pupils equal. Conjunctiva normal. HEENT: External appearance of nose and ears normal, oral cavity grossly normal. NECK: JVD not raised; masses not palpable. HEART: First and second heart sounds are normal; no edema. LUNGS: Respiratory rate normal; decreased breath sounds. ABDOMEN: Soft, nontender, liver spleen not palpable, no masses palpable. PSYCH: Alert and oriented x3; mood and affect normal. NEUROLOGICAL: [Cranial nerves grossly intact; no facial asymmetry, power in the right upper extremity 4/5, power in both lower extremities for 4/5. Some weakness in the left leg. Decreased sensation distally in both lower extremity. Patient able to raise both legs to about 15 LYMPHATICS: No lymph nodes palpable in the axilla and neck INVESTIGATIONS, reviewed in the clinical context: White count 5.5 hemoglobin 11.9 platelets 319 potassium 3.9 creatinine 0.7 to troponin I less than 0.012 Chest x-ray film personally reviewed by me-lung ivy clear EKG tracing personally reviewed by me-normal sinus rhythm CT brain negative Assessment: -This is a patient with paraneoplastic syndrome, treated for small cell lung cancer with chemotherapy and radiation currently in remission. Patient's last few weeks and been following difficult to walk. Seems to have proximal lower extremity weakness. Also has peripheral neuropathy. Patient is also got weakness in the right upper extremity and difficulty with coordination. -GERD -Hypothyroid -Small cell lung cancer status post chemoradiation treatment -Hypothyroid Plan: Consultations made to nephrology and oncology. MRI of the brain was ordered. Neuro checks were done. PTOT was consulted. Diagnosis is not clear at this point. Central demyelination and oral involvement of the spinal cord at the cervical level may account for that this proportionate neurological manifestation on both sides of the body.. Patient was being treated for Eaton- Lambert syndrome. Not sure if plasmapheresis will be of any benefit. Other medications to continue. Discussed with the patient and the . Await input neurology Past Medical History Past Medical History: Cancer, GERD/Reflux, Thyroid Disorder Additional Past Medical History / Comment(s): Recently diagnosed with R side small cell lung cancer-to start treatment with chemo/radiation on 01/15/19, recently found enlarged lymph node in chest, abdominal pain and recent weight loss. History of Any Multi-Drug Resistant Organisms: None Reported Past Surgical History: Orthopedic Surgery Additional Past Surgical History / Comment(s): ORIF alva ankles, lt knee arthroscopy, bronchoscopy with bx, R upper chest port insertion. Past Anesthesia/Blood Transfusion Reactions: No Reported Reaction Additional Past Anesthesia/Blood Transfusion Reaction / Comment(s): no hx blood transfusion Past Psychological History: No Psychological Hx Reported Smoking Status: Current some day smoker Past Alcohol Use History: None Reported Past Drug Use History: None Reported - Past Family History Mother Family Medical History: Cancer Additional Family Medical History / Comment(s): Mother had breast cancer. She is . Father Family Medical History: No Reported History Additional Family Medical History / Comment(s): Father is healthy and 82 yrs old. Medications and Allergies Home Medications Medication Instructions Recorded Confirmed Type Levothyroxine Sodium [Synthroid] 112 mcg PO DAILY 12/19/18 09/17/19 History Omeprazole 40 mg PO DAILY 12/29/18 09/17/19 History HYDROcodone/APAP 5-325MG [[place] 1 tab PO Q6H PRN 01/01/19 09/17/19 History 5-325] Ondansetron [Zofran] 4 mg PO Q8H PRN 01/12/19 09/17/19 History Ipratropium [place] [Atrovent Hfa] 2 puff INHALATION RT-QID PRN 01/23/19 09/17/19 History Amitriptyline HCl [Elavil] 25 mg PO HS 09/17/19 09/17/19 History Diazepam [Valium] 2 mg PO BID PRN 09/17/19 09/17/19 History Ergocalciferol [Vitamin D2] 50,000 unit PO Q14D 09/17/19 09/17/19 History Ibuprofen [Motrin] 800 mg PO TID PRN 09/17/19 09/17/19 History Lidocaine-Prilocaine Cream [Emla 1 applic TOPICAL DAILY PRN 09/17/19 09/17/19 History Cream 2.5%/2.5%] Methocarbamol [Robaxin] 500 mg PO TID PRN 09/17/19 09/17/19 History Sodium Chloride Tab 1 gm PO DAILY 09/17/19 09/17/19 History Allergies Allergy/AdvReac Type Severity Reaction Status Date / Time Sulfa (Sulfonamide Allergy Rash/Hives Verified 09/17/19 16:18 Antibiotics) latex AdvReac Rash/Hives Verified 09/17/19 16:18 METAL Allergy Rash/Hives Uncoded 09/17/19 16:19 Physical Exam Vitals: Vital Signs Temp Pulse Pulse Resp BP BP Pulse Ox 09/18/19 04:54 97.7 F 104 H 16 100 09/17/19 20:43 97.8 F 104 H 16 109/72 98 09/17/19 18:46 103 H 18 107/69 96 09/17/19 17:27 98.1 F 114 H 18 110/80 98 09/17/19 15:49 118 H 18 118/77 97 09/17/19 15:22 98.8 F 131 H 20 101/74 98 Intake and Output 09/17/19 09/18/19 09/18/19 22:59 06:59 14:59 Intake Total 60 160 Balance 60 160 Intake: IV 60 160 0.9 60 160 Other: Voiding Method Bedside Commode Bedside Commode # Voids 1 1 Weight 61.689 kg Results CBC & Chem 7: 09/17/19 16:15 09/17/19 16:15 Labs: Abnormal Lab Results - Last 24 Hours (Table) 09/17/19 09/17/19 09/17/19 Range/Units 16:15 16:15 16:15 RBC 3.69 L (3.80-5.40) m/uL APTT 34.6 H (22.0-30.0) sec Chloride 109 H (98-107) mmol/L Glucose 114 H (74-99) mg/dL Thrombosis Risk Factor Assmnt - Choose All That Apply Any of the Below Risk Factors Present?: Yes Each Factor Represents 1 point: Age 41-60 years Other Risk Factors: Yes Each Risk Factor Represents 2 Points: Malignancy Other congenital or acquired thrombophilia - If yes, enter type in comment: No Thrombosis Risk Factor Assessment Total Risk Factor Score: 3 Thrombosis Risk Factor Assessment Level: Moderate Risk
--- NOTE | 2019-09-18 22:05 | P.CONS ---
History of Present Illness - Reason for Consult Consult date: 09/18/19 - History of Present Illness MS Carrier is a 54 yr old WF pt of Dr Fortune, who had presented with SOB and abdominal bloating. CT Scan of CAP revealed R Hilar Lymphadenopathy, was refered to pulmonary and had diagnostic bronchoscopy with Herring needle Bx of R hilar LN on 12/20/18 revealing small cell carcinoma. The patient stated becoming anorexic and losing 25 Lbs in last 2 months, becoming very weak. She reported progressive dizziness last 2 weeks (was seen in wheelchair) and having RUE numbness in R upper extremities. Denies fever, chills or night sweats. 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 Denied family history of malignancy. She'll does staging was found to have lung limited disease, and underwent concurrent chemotherapy radiation with SAWDUST DRIER-16 and carboplatin. Chemotherapy after completion of concurrent treatment for a total of 6 cycles completing that in early 06/01 He continued to have significant neurologic complaints during her treatment, including generalized weakness, numbness and weakness of her right hand, and both feet as well as patchy numbness and other areas of the body. Multiple MRIs of the brain, most recently in early 09/01 did not show any specific of normality. She also had LP in 03/02 that was negative for malignancy. She was given a diagnosis of paraneoplastic Eaton- Lambert syndrome. Has been following with neurology has been on various treatments, including steroids, and gabapentin without benefit. Staging after completion of treatment showed significant progression, the patient had no improvement in her neurologic symptoms She was started on IVIG by neurology about 3-4 weeks ago and is status post 1 dose. The patient states that she had no improvement, and actually experienced further progression of her symptoms, with involuntary movements, increase generalized weakness with her lower extremities giving out to where she was unable to walk anymore. She was therefore brought to the emergency room and admitted for further management. She also complains of involuntary hand movements and episodes of confusion. She denied any difficulty with speech or swallowing. It was therefore placed for further evaluation and recommendations Review of Systems Constitutional: Reports fatigue, Reports weakness Eyes: denies blurred vision, denies pain Ears: deny: decreased hearing, ear discharge, earache, tinnitus Ears, nose, mouth and throat: Denies headache, Denies sore throat Cardiovascular: Reports dyspnea on exertion Respiratory: Reports as per HPI, Denies cough Gastrointestinal: Denies abdominal pain, Denies diarrhea, Denies nausea, Denies vomiting Genitourinary: Denies dysuria, Denies hematuria Menstruation: Reports postmenopausal Musculoskeletal: Reports gait dysfunction, Reports muscle cramps, Reports muscle weakness Musculoskeletal: right: hand stiffness Integumentary: Denies pruritus, Denies rash Neurological: Reports as per HPI, Reports ataxia, Reports confusion, Reports gait dysfunction, Reports lack of coordination, Reports numbness, Reports spasticity, Reports tic, Reports transient paralysis, Reports weakness Psychiatric: Reports anxiety, Reports confusion, Reports difficulty concentrating Endocrine: Reports fatigue, Reports weight change Hematologic/Lymphatic: Reports as per HPI Past Medical History Past Medical History: Cancer, GERD/Reflux, Thyroid Disorder Additional Past Medical History / Comment(s): Recently diagnosed with R side small cell lung cancer-to start treatment with chemo/radiation on 01/15/19, recently found enlarged lymph node in chest, abdominal pain and recent weight loss. History of Any Multi-Drug Resistant Organisms: None Reported Past Surgical History: Orthopedic Surgery Additional Past Surgical History / Comment(s): ORIF alva ankles, lt knee arthroscopy, bronchoscopy with bx, R upper chest port insertion. Past Anesthesia/Blood Transfusion Reactions: No Reported Reaction Additional Past Anesthesia/Blood Transfusion Reaction / Comm: no hx blood transfusion Past Psychological History: No Psychological Hx Reported Smoking Status: Current some day smoker Past Alcohol Use History: None Reported Past Drug Use History: None Reported - Past Family History Mother Family Medical History: Cancer Additional Family Medical History / Comment(s): Mother had breast cancer. She is . Father Family Medical History: No Reported History Additional Family Medical History / Comment(s): Father is healthy and 82 yrs old. Medications and Allergies Home Medications Medication Instructions Recorded Confirmed Type Levothyroxine Sodium [Synthroid] 112 mcg PO DAILY 12/19/18 09/17/19 History Omeprazole 40 mg PO DAILY 12/29/18 09/17/19 History HYDROcodone/APAP 5-325MG [[place] 1 tab PO Q6H PRN 01/01/19 09/17/19 History 5-325] Ondansetron [Zofran] 4 mg PO Q8H PRN 01/12/19 09/17/19 History Ipratropium [place] [Atrovent Hfa] 2 puff INHALATION RT-QID PRN 01/23/19 09/17/19 History Amitriptyline HCl [Elavil] 25 mg PO HS 09/17/19 09/17/19 History Diazepam [Valium] 2 mg PO BID PRN 09/17/19 09/17/19 History Ergocalciferol [Vitamin D2] 50,000 unit PO Q14D 09/17/19 09/17/19 History Ibuprofen [Motrin] 800 mg PO TID PRN 09/17/19 09/17/19 History Lidocaine-Prilocaine Cream [Emla 1 applic TOPICAL DAILY PRN 09/17/19 09/17/19 H istory Cream 2.5%/2.5%] Methocarbamol [Robaxin] 500 mg PO TID PRN 09/17/19 09/17/19 History Sodium Chloride Tab 1 gm PO DAILY 09/17/19 09/17/19 History Allergies Allergy/AdvReac Type Severity Reaction Status Date / Time Sulfa (Sulfonamide Allergy Rash/Hives Verified 09/17/19 16:18 Antibiotics) latex AdvReac Rash/Hives Verified 09/17/19 16:18 METAL Allergy Rash/Hives Uncoded 09/17/19 16:19 Physical Exam Vitals: Vital Signs Temp Pulse Resp BP BP Pulse Ox 09/18/19 20:34 97.5 F L 100 16 100/65 96 09/18/19 11:15 97.6 F 101 H 18 109/63 100 09/18/19 04:54 97.7 F 104 H 16 100 Intake and Output 09/18/19 09/18/19 09/18/19 06:59 14:59 22:59 Intake Total 160 Balance 160 Intake: IV 160 0.9 160 Other: Voiding Method Bedside Commode Bedside Commode # Voids 1 2 - Constitutional General appearance: no acute distress - EENT Eyes: EOMI, PERRLA ENT: hearing grossly normal, normal oropharynx - Neck Neck: no lymphadenopathy Thyroid: bilateral: normal size - Respiratory Respiratory: bilateral: CTA - Cardiovascular Rhythm: regular Heart sounds: normal: S1, S2 - Gastrointestinal General gastrointestinal: normal bowel sounds, soft - Integumentary Integumentary: normal - Neurologic decreased sensation lower abdomen, and upper anterior lower extremities bilaterally Spastic paresis of at least 3 fingers of her right hand Proximal and distal lower extremity strength maintained Questionable head tremor Neurologic: CNII-XII intact, focal deficits - Musculoskeletal Musculoskeletal: generalized weakness, right sided weakness - Psychiatric Psychiatric: A&O x's 3, appropriate affect Results CBC & Chem 7: 09/17/19 16:15 09/17/19 16:15 Chest x-ray: report reviewed CT scan - abdomen: report reviewed CT scan - chest: report reviewed CT Scan - head: report reviewed CT scan - pelvis: report reviewed MRI - head: report reviewed Assessment and Plan (1) Lambert-Eaton syndrome Narrative/Plan: The patient has had multiple neurologic symptoms as described. She has been given this diagnosis and has been following with neurology with multiple treat ments, including, most recently, IVIG. He has had no improvement and reports further worsening of her symptoms since IVIG. At this time she does not have any deficits with speech, swallowing or res piratory difficulty. Bowel and bladder sensation are maintained. In the lower extremities is also maintained. On exam, the patient appears to have both sensory and motor deficits in a fairly patchy distribution. Proximal leg strength actually appear to be maintained. Therefore I was concern for a paraneoplastic patchy demyelinating- type process. Patient will be started on IV steroids. Urology has been consulted. MRI spinal survey as well as MRI had to be ordered. If the above studies do not reveal a specific etiology, then repeat lumbar puncture will need to be considered Current Visit: Yes Status: Acute Code(s): G70.80 - LAMBERT-EATON SYNDROME, UNSPECIFIED SNOMED Code(s): 27366266 (2) Small cell lung cancer Narrative/Plan: Ramses and therapeutic circumstances as described. The patient has been off chemotherapy now since 06/01. Most recent staging studies, including MRI of the brain in early 09/01 have shown remission. 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 This has improved with treatment of the underlying cancer Current Visit: No Status: Acute Priority: High Code(s): E22.2 - SYNDROME OF INAPPROPRIATE SECRETION OF ANTIDIURETIC HORMONE SNOMED Code(s): 04130150
[2019-09-19] MEDS: DIAZEPAM 2 MG TAB PO PRN (01:19)
[2019-09-19] MEDS: DEXAMETHASONE SOD PHOSPHATE 10 MG/ML 1 ML VIAL IV SCH ×3 (05:38→19:34)
[2019-09-19] MEDS: LEVOTHYROXINE 112 MCG TAB PO SCH (05:38)
[2019-09-19] MEDS: SODIUM CHLORIDE TAB 1 GM TAB PO SCH (08:05)
[2019-09-19] MEDS: PANTOPRAZOLE 40 MG TABLET PO SCH (08:08)
--- NOTE | 2019-09-19 11:53 | P.PN ---
Progress Note - Text Progress Note Date: 09/19/19 SUBJECTIVE/INTERVAL EVENTS: No acute overnight events. Patient states that her weakness has improved to the point where she is able to sit up on her own and stand with walker. She was able to drag herself with the walker to the toilet earlier but having difficult at this time, but definitely with improvement in strength compared to yesterday. Denies headache, nausea, vomiting. Discussed with patient and (over the phone) about the MRI result and the plan to transfer patient to [facility]. Discussed case with Dr. Brady and Jeanne (Neurologist). Patient accepted. PHYSICAL EXAMINATION: VITAL SIGNS: T 97.2 HR 107 RR 14 BP 120/80 O2 sat 97% on RA GEN.: NAD, pleasant and cooperative HEENT: NCAT, sclera without icterus NECK: Supple SKIN AND EXTREMITIES: Warm to touch, no edema NEURO: MENTAL STATUS: Patient alert and oriented to self, place, time. Able to name the current president. Speech fluent, able to name and repeat, following most commands readily. No right and left disorientation, neglect. CRANIAL NERVES II THROUGH XII: II: Pupils are equal and reactive to light symmetrically. No afferent pupillary defect. Visual ivy are intact. III, IV, : No ptosis. Extraocular movements full. No nystagmus. V: Facial sensation intact from V1-3. VII. No clear facial asymmetry. VIII: Hearing intact to finger rub bilaterally. IX, X: Symmetric palate elevation. XI: Shoulder shrug intact. XII: Tongue midline without fasciculation or atrophy. MOTOR: Normal bulk/tone. No pronator drift or tremor. Strength is 4/5 in bilateral upper and lower extremities. However, when patient tries to sit up, she is unable to, and she states that when her tried to get her to the toilet, she needed 100% assistance SENSORY: Intact to light touch in bilateral upper extremities patient cannot feel much below her knees bilaterally. However, sensation is intact to temperature in all 4 extremities. REFLEXES: 2+ throughout. Toes are upgoing. 2-3 beats of clonus. Tristan's is absent COORDINATION: Finger to nose intact. No dysmetria. Rapid alternating movements with significantly decreased accuracy with her right fingers but okay in her left hand GAIT: Patient able to stand with walker but with difficulty taking even one step during my eval. DIAGNOSTIC TESTING: LABORATORY: WBC 5.5 hemoglobin 11.9 platelets 219 PT 9.7 INR 0.9 sodium 140 potassium 3.9 chloride 109 bicarb 23 BUN 15 creatinine 0.72 glucose 114 AST 21 ALT 19 alk phos 68 troponin <0.012 IMAGING: MRI brain with and without contrast 09/18/2019: Abnormal signal along the medial right frontal gyrus without abnormal enhancement. Differential is for subacute cortical infarct although encephalitis is favored given the gyri form contour. Autoimmune encephalitis is possible given the patient's history. Mild burden nonspecific white matter changes some of the prior 08/23/2019 CT head without contrast 09/17/2019: No acute intracranial abnormality. ASSESSMENT: 54-year-old woman with past medical history of small cell lung cancer, Lambert- Eaton syndrome, GERD, hypothyroidism, who presented to [facility] for difficulties with ambulation. This difficult to tell whether her weakness is from her Lambert-Eaton syndrome as her strength should get better with sustained movement, which could not be tested due to patient's significant weakness. Patient also with history of chemotherapy treatment, hence possible chemotherapy could cause peripheral neuropathy and plexopathy causing weakness. There is also possibility of metastasis to the brain. Etiology of her lower extremity weakness. MRI brain with and without contrast showing an abnormal signal in the medial right frontal gyrus without abnormal enhancement, autoimmune encephalitis favored at this time RECOMMENDATIONS: 1. We'll transfer patient to [facility] or [place] for lumbar puncture and plasmapheresis. Plasmapheresis and/or immunosuppressive medications can be cons idered for further treatment of her Lambert-Eaton syndrome. Patient has not had any change but rather worsening in her symptoms since her first round of IVIG which was about a month ago. 2. Neurology will sign off at this time. Please feel free to contact Neurology again if with additional questions or concerns.
[2019-09-19] MEDS: HYDROcodone/APAP 5-325MG 1 EACH TAB PO PRN (15:25)
[2019-09-19] MEDS: METHOCARBAMOL 500 MG TAB PO PRN (15:26)
[2019-09-19] MEDS ORDERED: LACTULOSE 20 GM/30 ML CUP PO ONE (16:49)
--- NOTE | 2019-09-19 17:30 | P.PN ---
Subjective Progress Note Date: 09/19/19 The patient states that she feels significantly stronger. She was able to get out of bed, been weight and walk with support. No current headaches, visual complaints, or any new deficits. Swallowing and speech are maintained. Objective - Vital Signs Vital signs: Vital Signs Temp 97.7 F 09/19/19 11:35 Pulse 120 H 09/19/19 11:35 Resp 14 09/19/19 11:35 BP 111/59 09/19/19 11:35 Pulse Ox 95 09/19/19 11:35 Intake & Output 09/18/19 09/19/19 09/19/19 18:59 06:59 18:59 Intake Total 230 Balance 230 Intake: IV 230 0.9 230 Other: Voiding Method Bedside Commode Bedside Commode Bedside Commode # Voids 2 2 2 - Constitutional General appearance: Present: no acute distress - EENT Eyes: Present: EOMI ENT: Present: hearing grossly normal, normal oropharynx - Respiratory Respiratory: bilateral: CTA - Cardiovascular Rhythm: regular Heart sounds: normal: S1, S2 - Gastrointestinal General gastrointestinal: Present: normal bowel sounds, soft - Integumentary Integumentary: Present: normal - Neurologic Neurologic: Present: CNII-XII intact, focal deficits (Fingers of right hand abnormality, as well as numbness in lower abdomen stable. Lower extremity strength improved) - Musculoskeletal Musculoskeletal: Present: generalized weakness - Labs CBC & Chem 7: 09/17/19 16:15 09/17/19 16:15 Assessment and Plan (1) Lambert-Eaton syndrome Narrative/Plan: The patient states that she feels significantly better today. This could be potentially due to the steroids. MRI of the brain was reviewed and results discussed with her. Abnormal signal is seen along the left frontal gyrus. Etiology of this is not clear as it does not show abnormal enhancement. MRI of the spine is pending. Continue IV steroids Await results of MRI spine Also with urology recommendations as to need for more aggressive treatment such as plasmapheresis or need for repeat LP. Current Visit: Yes Status: Acute Code(s): G70.80 - LAMBERT-EATON SYNDROME, UNSPECIFIED SNOMED Code(s): 52092334 (2) Small cell lung cancer Narrative/Plan: The patient is not on any treatment currently. She does not have any clinical evidence of recurrence so far. Continue to monitor Current Visit: Yes Status: Acute Priority: High Code(s): C34.90 - MALIGNANT NEOPLASM OF UNSP PART OF UNSP BRONCHUS OR LUNG SNOMED Code(s): 532905065 (3) SIADH (syndrome of inappropriate ADH production) Current Visit: No Status: Acute Priority: High Code(s): E22.2 - SYNDROME OF INAPPROPRIATE SECRETION OF ANTIDIURETIC HORMONE SNOMED Code(s): 86874980
[2019-09-19] MEDS: AMITRIPTYLINE HCL 25 MG TAB PO SCH (21:59)
--- NOTE | 2019-09-19 22:00 | P.PN ---
Progress Note - Text Progress Note Date: 09/19/19 Chief Complaint: Difficulty walking History of presenting complaint: This is a pleasant 54 year old female patient of Dr. Selvin Jaeger. 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 She's been followed for Dr. Rodrigues from neurology. 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 Did receive treatment with chemotherapy and radiation treatment. Followed by Dr. Orozco. She is in remission. Patient has no trouble with her bowels or urine and appetite is fair. Able to feed himself. Patient recently had been using a walker. Oral course of time patient is now presents with weakness in the right arm. Left leg. She is finding too difficult to get up from the toilet seat. Has difficulty with walking 2. Patient is able to comb her hair and feed herself. Her to immunoglobulin infusions for an August 17 and September 06. Patient also had some confusion. The difficulty in walking this coming on over the last few weeks. Is no change in her vision. No headaches. She has neuropathy findings the lower extremity. Decreased sensation. Neurology was consulted. at the bedside. Differential for her limbs weakness includes autoimmune encephalitis, myelitis, atypical Eaton-Lambert syndrome Today-patient's was walking better with a walker. Was started on Decadron yesterday. Neurology is decided for plasmapheresis. Transfer will happen tomorrow. Active Medications Hydrocodone Bitart/Acetaminophen (Narka 5-325) 1 each PO Q6H PRN PRN Reason: Pain Last Admin: 09/19/19 15:25 Dose: 1 each Documented by: Amitriptyline HCl (Elavil) 25 mg PO HS [facility] Last Admin: 09/18/19 21:05 Dose: 25 mg Documented by: Dexamethasone Sodium Phosphate (Decadron) 6 mg IV Q6HR [facility] Last Admin: 09/19/19 19:34 Dose: 6 mg Documented by: Diazepam (Valium) 2 mg PO BID PRN PRN Reason: Anxiety Last Admin: 09/19/19 01:19 Dose: 2 mg Documented by: Ibuprofen (Motrin) 800 mg PO TID PRN PRN Reason: Pain Ipratropium [place] (Atrovent Nebulized) 0.5 mg INHALATION RT-QID PRN PRN Reason: Dyspnea Levothyroxine Sodium (Synthroid) 112 mcg PO 0630 [facility] Last Admin: 09/19/19 05:38 Dose: 112 mcg Documented by: Lidocaine/Prilocaine (Emla Cream 2.5%/2.5%) 1 applic TOPICAL DAILY PRN PRN Reason: PORT ACCESS Methocarbamol (Robaxin) 500 mg PO TID PRN PRN Reason: Muscle Spasm Last Admin: 09/19/19 15:26 Dose: 500 mg Documented by: Naloxone HCl (Narcan) 0.2 mg IV Q2M PRN PRN Reason: Opioid Reversal Ondansetron HCl (Zofran) 4 mg PO Q8H PRN PRN Reason: Nausea Pantoprazole Sodium (Protonix) 40 mg PO AC-BRKFST [facility] Last Admin: 09/19/19 08:08 Dose: 40 mg Documented by: Sodium Chloride (Sodium Chloride Tab) 1 gm PO DAILY [facility] Last Admin: 09/19/19 08:05 Dose: Not Given Documented by: Physical examination: VITAL SIGNS: 97.7, 110, 14, one would wonder was 59, 95% room air GENERAL: Sitting up in the bed EYES: Pupils equal. Conjunctiva normal. HEENT: External appearance of nose and ears normal, oral cavity grossly normal. NECK: JVD not raised; masses not palpable. HEART: First and second heart sounds are normal; no edema. LUNGS: Respiratory rate normal; decreased breath sounds. ABDOMEN: Soft, nontender, liver spleen not palpable, no masses palpable. PSYCH: Alert and oriented x3; mood and affect normal. NEUROLOGICAL: [Cranial nerves grossly intact; no facial asymmetry, power in the right upper extremity 4/5, power in both lower extremities for 4/5. Some weakness in the left leg. Decreased sensation distally in both lower extremity. Patient able to raise both legs to about 15. Patient active walked better today with a walker. INVESTIGATIONS, reviewed in the clinical context: White count 5.5 hemoglobin 11.9 platelets 319 potassium 3.9 creatinine 0.7 to troponin I less than 0.012 Chest x-ray film personally reviewed by me-lung ivy clear EKG tracing personally reviewed by me-normal sinus rhythm CT brain negative MRI brain-area of abnormal signal in the beginning right frontal superior [place]. Assessment: -This is a patient with paraneoplastic syndrome, treated for small cell lung cancer with chemotherapy and radiation currently in remission. Patient's last few weeks and been following difficult to walk. Seems to have proximal lower extremity weakness. Also has peripheral neuropathy. Patient is also got weakness in the right upper extremity and difficulty with coordination. Differential includes autoimmune encephalitis, autoimmune myelitis, atypical Eaton-Lambert syndrome. -GERD -Hypothyroid -Small cell lung cancer status post chemoradiation treatment -Hypothyroid Plan: Patient is doing better with steroids. Continue with the same. Patient be transferred to outside facility for plasmapheresis tomorrow. sales and business development manager is involved. Discussed with patient and . Being followed by neurology and oncology.
--- NOTE | 2019-09-19 22:32 | MR ---
EXAMINATION TYPE: MR clayton/hernesto wo/w con DATE OF EXAM: 09/19/2019 COMPARISON: 02/16/2019 HISTORY: Progressive polyneuropathy, SCLC, lower ext weakness CONTRAST: Performed utilizing 6.5 mL intravenous Gadavist gadolinium contrast. TECHNIQUE: Multiplanar multiecho imaging on a 3.0 Cherie magnet is performed through the cervical spin e. FINDINGS: The craniovertebral junction is normal. Vertebral body alignment is normal. C7-T1: No focal disc herniation or significant disc bulge is evident. No spinal canal stenosis or n eural foraminal stenosis is present. C6-7: No focal disc herniation or significant disc bulge is evident. No spinal canal stenosis or jason ral foraminal stenosis is present. C5-6: Mild disc bulge is present with anterior thecal sac flattening. No AP spinal canal stenosis pre sent. C4-5: Mild disc bulge is present with subligamentous disc extension. This has mild anterior thecal sa c compression. No cord contact or spinal canal stenosis is present. C3-4: No focal disc herniation or significant disc bulge is evident. No spinal canal stenosis or jason ral foraminal stenosis is present. C2-3: No focal disc herniation or significant disc bulge is evident. No spinal canal stenosis or jason ral foraminal stenosis is present. IMPRESSIONS: 1. Mild disc bulging C4-5 and C5-6. 2. No suspicious spinal cord anomalies. 3. Exam is stable from prior exam. EXAMINATION TYPE: MR clayton/hernesto wo/w con DATE OF EXAM: 09/19/2019 COMPARISON: 02/16/2019 HISTORY: Progressive polyneuropathy, SCLC, lower ext weakness CONTRAST: Performed utilizing 6.5 mL intravenous Gadavist gadolinium contrast. TECHNIQUE: Multiplanar, multiecho imaging on a 3.0 Cherie magnet is performed through the thoracic spi ne. There is some subtle signal change within the spinal cord. Increased signal on T2-weighted sequences within the posterior and slightly right paracentral region. This begins approximately T11-12 to appro ximately T5. Cord expansion is not identified. No enhancement is evident. Vertebral body alignment is normal. Vertebral body heights are preserved. Some disc space narrowing is present. There is some mild thecal sac compression from disc bulges with in the thoracic spine. No cord contact is evident. No spinal canal stenosis is evident. Disc desiccation is present through the thoracic spine. No spinal canal stenosis is evident. IMPRESSIONS: 1. There appears to be interval development of some signal abnormality within the posterior posterior lateral aspect of the spinal cord extending from approximately T5-T11. Consider demyelination kallie rodriguez.
[2019-09-20] MEDS: HYDROcodone/APAP 5-325MG 1 EACH TAB PO PRN (00:16)
[2019-09-20] MEDS: DEXAMETHASONE SOD PHOSPHATE 10 MG/ML 1 ML VIAL IV SCH ×2 (00:17→06:10)
[2019-09-20 05:24] VITALS: BP 117/69; PULSE 97; RESP 18; TEMP 98
[2019-09-20] MEDS: LEVOTHYROXINE 112 MCG TAB PO SCH (06:10)
[2019-09-20] MEDS: DIAZEPAM 2 MG TAB PO PRN (06:10)
[2019-09-20] MEDS: METHOCARBAMOL 500 MG TAB PO PRN (06:26)
[2019-09-20] MEDS: PANTOPRAZOLE 40 MG TABLET PO SCH (07:55)
[2019-09-20] MEDS: SODIUM CHLORIDE TAB 1 GM TAB PO SCH (07:55)
--- NOTE | 2019-09-25 12:17 | P.DS ---
Providers Date of admission: 09/19/19 10:09 Expected date of discharge: 09/20/19 Attending physician: Brice Cisneros Consults: 09/17/19 18:30 Consult Physician Urgent Consulting Provider: Pop Fortune Consult Reason/Comments: hx lung cancer, lambert eaton Do you want consulting provider notified?: Yes Consult Physician Urgent Consulting Provider: Nancy Gonzales Consult Reason/Comments: acute ataxia, hx lambert eaton on IVIG Do you want consulting provider notified?: Yes Primary care physician: [facility] Course: Chief Complaint: Difficulty walking History of presenting complaint: This is a pleasant 54 year old female patient of Dr. Selvin Jaeger. 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 She's been followed for Dr. Rodrigues from neurology. 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 Did receive treatment with chemotherapy and radiation treatment. Followed by Dr. Orozco. She is in remission. Patient has no trouble with her bowels or urine and appetite is fair. Able to feed himself. Patient recently had been using a walker. Oral course of time patient is now presents with weakness in the right arm. Left leg. She is finding too difficult to get up from the toilet seat. Has difficulty with walking 2. Patient is able to comb her hair and feed herself. Her to immunoglobulin infusions for an August 17 and September 06. Patient also had some confusion. The difficulty in walking this coming on over the last few weeks. Is no change in her vision. No headaches. She has neuropathy findings the lower extremity. Decreased sensation. Neurology was consulted. at the bedside. Differential for her limbs weakness includes autoimmune encephalitis, myelitis, atypical Eaton-Lambert syndrome Patient started on Decadron. Did feel better. Starting to walk a little bit better with support. Patient was seen by Dr. Gonzales the neurologist. Also seen by Dr. Urias from oncology. MRI of the spine showed abnormal signals in the spinal cord from T5-T11. Patient is being transferred for plasmapheresis. Consultations: Dr. Urias from oncology Dr. Gonzales from neurology Physical examination: Exam yesterday VITAL SIGNS: 98, 97, 18, 11 7/69, 97% on room air GENERAL: Sitting up in the bed EYES: Pupils equal. Conjunctiva normal. HEENT: External appearance of nose and ears normal, oral cavity grossly normal. NECK: JVD not raised; masses not palpable. HEART: First and second heart sounds are normal; no edema. LUNGS: Respiratory rate normal; decreased breath sounds. ABDOMEN: Soft, nontender, liver spleen not palpable, no masses palpable. PSYCH: Alert and oriented x3; mood and affect normal. NEUROLOGICAL: [Cranial nerves grossly intact; no facial asymmetry, power in the right upper extremity 4/5, power in both lower extremities for 4/5. Some weakness in the left leg. Decreased sensation distally in both lower extremity. Patient able to raise both legs to about 15. walked with a walker. INVESTIGATIONS, reviewed in the clinical context: White count 5.5 hemoglobin 11.9 platelets 319 potassium 3.9 creatinine 0.7 to troponin I less than 0.012 Chest x-ray film personally reviewed by me-lung ivy clear EKG tracing personally reviewed by me-normal sinus rhythm CT brain negative MRI brain-area of abnormal signal in the beginning right frontal superior gyrus MRI spinal cord-abnormal signals in the spinal cord posteriorly from T5-T11. Assessment: -This is a patient with paraneoplastic syndrome, treated for small cell lung cancer with chemotherapy and radiation currently in remission. Patient's last few weeks and been following difficult to walk. Seems to have proximal lower extremity weakness. Also has peripheral neuropathy. Patient is also got weakness in the right upper extremity and difficulty with coordination. 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 -GERD -Hypothyroid -Small cell lung cancer status post chemoradiation treatment -Hypothyroid -Eaton-Lambert syndrome Disposition: Richard Guzman for plasmapheresis Patient Condition at Discharge: Undetermined Plan - Discharge Summary Discharge Rx Participant: No New Discharge Prescriptions: No Action Levothyroxine Sodium [Synthroid] 112 mcg PO DAILY Omeprazole 40 mg PO DAILY HYDROcodone/APAP 5-325MG [[place] 5-325] 1 tab PO Q6H PRN PRN Reason: Pain Ondansetron [Zofran] 4 mg PO Q8H PRN PRN Reason: Nausea Ipratropium [place] [Atrovent Hfa] 2 puff INHALATION RT-QID PRN PRN Reason: Dyspnea Sodium Chloride Tab 1 gm PO DAILY Methocarbamol [Robaxin] 500 mg PO TID PRN PRN Reason: Muscle Spasm Ibuprofen [Motrin] 800 mg PO TID PRN PRN Reason: Pain Amitriptyline HCl [Elavil] 25 mg PO HS Ergocalciferol [Vitamin D2] 50,000 unit PO Q14D Diazepam [Valium] 2 mg PO BID PRN PRN Reason: Anxiety Lidocaine-Prilocaine Cream [Emla Cream 2.5%/2.5%] 1 applic TOPICAL DAILY PRN PRN Reason: PORT ACCESS Discharge Medication List Levothyroxine Sodium [Synthroid] 112 mcg PO DAILY 12/19/18 [History] Omeprazole 40 mg PO DAILY 12/29/18 [History] HYDROcodone/APAP 5-325MG [[place] 5-325] 1 tab PO Q6H PRN 01/01/19 [History] Ondansetron [Zofran] 4 mg PO Q8H PRN 01/12/19 [History] Ipratropium [place] [Atrovent Hfa] 2 puff INHALATION RT-QID PRN 01/23/19 [History] Amitriptyline HCl [Elavil] 25 mg PO HS 09/17/19 [History] Diazepam [Valium] 2 mg PO BID PRN 09/17/19 [History] Ergocalciferol [Vitamin D2] 50,000 unit PO Q14D 09/17/19 [History] Ibuprofen [Motrin] 800 mg PO TID PRN 09/17/19 [History] Lidocaine-Prilocaine Cream [Emla Cream 2.5%/2.5%] 1 applic TOPICAL DAILY PRN 09/17/19 [History] Methocarbamol [Robaxin] 500 mg PO TID PRN 09/17/19 [History] Sodium Chloride Tab 1 gm PO DAILY 09/17/19 [History] Follow up Appointment(s)/Referral(s): Selvin Jaeger MD [Primary Care Provider] - 1-2 days Discharge Disposition: TRANSFER TO [facility]
== END 2019-09-20 10:20 | disposition short-term general hospital (02) | DRG 98 ==
LOC: EC 15:20 → 3NMEDONC 18:27 → OBSVTOIN 09-19 10:09
PROVIDERS: ADMIT Hospitalist; ATTEND Hospitalist
DX: G04.89 Other myelitis (principal); G70.80 Lambert-Eaton syndrome, unspecified; E22.2 Syndrome of inappropriate secretion of antidiuretic hormone; E03.9 Hypothyroidism, unspecified; F17.200 Nicotine dependence, unspecified, uncomplicated; F41.9 Anxiety disorder, unspecified; K21.9 Gastro-esophageal reflux disease without esophagitis; Z79.890 Hormone replacement therapy; Z80.3 Family history of malignant neoplasm of breast; Z85.118 Personal history of other malignant neoplasm of bronchus and lung; Z92.21 Personal history of antineoplastic chemotherapy; Z92.3 Personal history of irradiation; Z91.040 Latex allergy status; Z88.2 Allergy status to sulfonamides; Z91.048 Other nonmedicinal substance allergy status
CPT/HCPCS: 36415; 70450; 70553; 71046; 72156; 72157; 80053; 84484; 85025; 85610; 85730; 93005; 99285

== ENCOUNTER → 2019-10-08 | Outpatient (CLI) | payer OTHER ==
--- NOTE | 2019-10-08 13:20 | CT ---
EXAMINATION TYPE: CT chest w con DATE OF EXAM: 10/08/2019 COMPARISON: 05/31/2019 HISTORY: Sm. Cell Lung CA CT DLP: 168.2 mGycm Automated exposure control for dose reduction was used. CONTRAST: CT scan of the chest is performed with IV Contrast, patient injected with 100 mL of Isovue 300. FINDINGS: LUNGS: Upper lobe radiation therapy changes noted. No evidence for recurrent or residual mass at this time. The lungs are grossly clear, there is no concerning parenchymal mass or nodule identified. T here is no pleural effusion or pneumothorax seen. The tracheobronchial tree is patent. MEDIASTINUM: There are no greater than 1 cm hilar or mediastinal lymph nodes. No pericardial effusi on is seen. Thoracic aorta is of normal caliber. The heart is not enlarged. UPPER ABDOMEN: No significant abnormality appreciated. OTHER: No additional significant abnormality is seen. IMPRESSION: Upper lobe radiation therapy changes noted. No evidence for recurrent or residual mass at this time.
== END | disposition home or self-care (01) ==
LOC: RADCTMAIN 09:32
PROVIDERS: ATTEND Internal Medicine Hematology & Oncology
DX: C34.91 Malignant neoplasm of unspecified part of right bronchus or lung (principal); Z88.2 Allergy status to sulfonamides
CPT/HCPCS: 71260; J1642; Q9967

== ENCOUNTER → 2019-10-27 | Outpatient (CLI) | payer OTHER ==
--- NOTE | 2019-10-30 06:51 | PE ---
EXAMINATION TYPE: PET CT fusion skull to thigh DATE OF EXAM: 10/27/2019 COMPARISON: CT chest October 08, 2019 and older CTs PET CT December 30, 2018.. HISTORY: History of small cell lung cancer completed chemotherapy and radiation treatment in May. TECHNIQUE: Following the intravenous administration of 11.83 mCi of F-18 FDG, whole body images are performed from the skull base to the midthigh. Images are reviewed on the computer in the coronal, a xial, and sagittal planes. Reconstructed rotating images are created on independent workstation and reviewed on the computer. A noncontrast CT is performed in conjunction with the PET scan. SCAN: Subsequent Scan FINDINGS: SKULL BASE AND NECK: No new areas of suspicious hypermetabolic uptake. CHEST, MEDIASTINUM, AND HILAR REGION: Background mild to moderate underlying emphysematous change red emonstrated. Some new right hilar consolidation extending anteriorly without hypermetabolic uptake fa vors post treatment response. Previously visualized hypermetabolic enlarged right paratracheal lymph node is now not clearly seen near axial image 81 correlating with most recent CT. Smaller hypermetabo lic right hilar adenopathy also not well identified. No new areas of suspicious hypermetabolic uptake are seen. ABDOMEN AND PELVIS: Normal excretion is present. No new areas of suspicious hypermetabolic uptake. OSSEOUS STRUCTURES: No new areas of suspicious hypermetabolic uptake. OTHER CT: Stable right internal jugular Mediport catheter terminating in SVC. Coronary artery calcifi cation is redemonstrated which is noted marked of underlying coronary artery disease. Stable low dense thickening to left adrenal gland without hypermetabolic uptake. Occasional pelvic ph leboliths. Mild prominence of fecal material throughout the colon. Mild/moderate calcified plaque of the abdominal aorta extending into branch vessels. Spine is straightened with disc space narrowing an d sclerosis L4-L5 level and facet arthropathy lower lumbar spine. IMPRESSION: Positive treatment response without new mass or persistent active/hypermetabolic lesions identified.
== END | disposition home or self-care (01) ==
LOC: RADPETMAIN 08:30
PROVIDERS: ATTEND Internal Medicine
DX: R91.1 Solitary pulmonary nodule (principal)
CPT/HCPCS: 78815; A9552